=== PATIENT | female | born 1970 | race Caucasian/White ===

== ENCOUNTER 2022-08-26 02:25 | Inpatient (IN) | payer BC, MEDICAID ==
[~2022-08-26] VITALS: Ht 170.2 cm; Wt 103.6 kg
[~2022-08-26 02:25] MED LIST: CLIN-141 PO; FURO-152 PO; POTA10CA45 PO; TAMS-1 PO
[2022-08-26 03:06] LABS: BASOPHILS % (AUTO) 0.2 % (0.0-5.0); EOSINOPHILS % (AUTO) 1.1 % (0.0-8.0); HEMATOCRIT 24.2 % (36-48); LYMPHOCYTES % (AUTO) 9.2 % (21.0-51.0); MEAN CORPUSCULAR HEMOGLOBIN 27.5 pg (27.0-33.0); MEAN CORPUSCULAR HGB CONC 32.6 g/dL (32.0-36.0); MEAN CORPUSCULAR VOLUME 84.3 fL (79-99); MONOCYTES % (AUTO) 6.8 % (3.0-13.0); NEUTROPHILS % (AUTO) 81.6 % (40.0-77.0); NUCLEATED RED BLOOD CELLS 0.4 % (0.0-0.19); PLATELET COUNT (AUTO) 147 K/uL (130-400); RED BLOOD CELL COUNT(AUTO) 2.87 MIL/uL (4.00-5.50); RED CELL DISTRIBUTION WIDTH 16.5 % (11.0-15.5); WHITE BLOOD COUNT (AUTO) 10.3 K/uL (4.8-10.8)
[2022-08-26 03:21] LABS: ALBUMIN 2.7 g/dL (3.5-5.0); CREATININE 1.8 mg/dL (0.5-1.5); POTASSIUM 5.1 mmol/L (3.5-5.1); TOTAL PROTEIN, SERUM 8.4 g/dL (6.0-8.3)
[2022-08-26] MEDS ORDERED: 0.9%NACL 1000ML 1,000 ML IV ONE ×2 (03:31→04:00)
[2022-08-26] MEDS ORDERED: ONDANSETRON 4MG INJ ONE (03:31)
[2022-08-26 03:43] LABS: ABG OXYGEN SATURATION 31.5 % (95.0-99.0); BASE EXCESS,VENOUS BLOOD GAS -3.3 (-2.0-3.0); HCO3,VENOUS BLOOD GAS 20.2 (21.0-28.0); PCO2,VENOUS BLOOD GAS 30 (32-45); PH,VENOUS BLOOD GAS 7.441 (7.350-7.450)
[2022-08-26] MEDS ORDERED: ONDANSETRON 4MG INJ IVP ONE (04:00)
[2022-08-26] MEDS ORDERED: INSULIN HUMULIN R 100 UNIT/ML 3ML IV ONE ×3 (04:30→17:30)
[2022-08-26] MEDS ORDERED: ASPIRIN 81MG CHEW TAB ONE (04:42)
[2022-08-26] MEDS ORDERED: ASPIRIN 81MG CHEW TAB PO ONE (05:00)
[2022-08-26] MEDS ORDERED: LACTULOSE 20 GM/30 ML UDCUP PO PRN (05:00)
[2022-08-26] MEDS ORDERED: ACETAMINOPHEN 325 MG TAB PO PRN (05:00)
[2022-08-26 05:20] LABS: INR 1.02 (0.85-1.15); PROTHROMBIN TIME 11.1 SEC (9.6-11.6)
[2022-08-26 05:22] LABS: PARTIAL THROMBOPLASTIN TIME 24.8 SEC (26.3-35.5)
[2022-08-26 05:27] LABS: CHOLESTEROL 95 mg/dL (<200); HDL CHOLESTEROL 32 mg/dL (35-85); HEMOGLOBIN A1C 10.5 % (4.0-6.0); LDL DIRECT 52 mg/dL (0-99); TRIGLYCERIDES 133 mg/dL (30-200)
[2022-08-26] MEDS: HEPARIN 25,000 UNITS/250ML D5W 250 ML IV SCH ×4 (05:30→18:00)
[2022-08-26] MEDS ORDERED: INSULIN HUMULIN R 100 UNIT/ML 3ML SQ SCH (06:00)
[2022-08-26] MEDS ORDERED: HEPARIN 5,000 UNIT VIAL SQ PRN (06:00)
[2022-08-26 06:05] VITALS: BP 127/75
[2022-08-26 06:58] LABS: BASOPHILS % (AUTO) 0.2 % (0.0-5.0); EOSINOPHILS % (AUTO) 1.2 % (0.0-8.0); HEMATOCRIT 22.5 % (36-48); LYMPHOCYTES % (AUTO) 10.5 % (21.0-51.0); MEAN CORPUSCULAR HGB CONC 32.4 g/dL (32.0-36.0); MEAN CORPUSCULAR VOLUME 83.3 fL (79-99); MONOCYTES % (AUTO) 6.7 % (3.0-13.0); NUCLEATED RED BLOOD CELLS 0.4 % (0.0-0.19); PLATELET COUNT (AUTO) 130 K/uL (130-400); RED CELL DISTRIBUTION WIDTH 16.9 % (11.0-15.5); WHITE BLOOD COUNT (AUTO) 10.9 K/uL (4.8-10.8)
[2022-08-26] MEDS ORDERED: CARBAMAZEPINE ER 200 MG TAB PO SCH (08:00)
[2022-08-26] MEDS: FAMOTIDINE 20MG VIAL IV SCH (08:22)
[2022-08-26] MEDS: ATORVASTATIN 40 MG TABLET PO SCH (08:24)
[2022-08-26] MEDS: ASPIRIN 81 MG EC TAB PO SCH (08:26)
[2022-08-26 08:49] VITALS: BP 106/57
[2022-08-26] MEDS ORDERED: ASPIRIN 81 MG EC TAB PO SCH (09:00)
[2022-08-26 09:53] LABS: HCO3,VENOUS BLOOD GAS 21.2 (21.0-28.0); PCO2,VENOUS BLOOD GAS 39 (32-45); PH,VENOUS BLOOD GAS 7.351 (7.350-7.450)
[2022-08-26] MEDS ORDERED: TICAGRELOR 90 MG TABLET PO SCH (10:00)
[2022-08-26 10:05] LABS: HEMATOCRIT 23.1 % (36-48); MEAN CORPUSCULAR HEMOGLOBIN 27.1 pg (27.0-33.0); MEAN CORPUSCULAR VOLUME 84.6 fL (79-99); NUCLEATED RED BLOOD CELLS 0.4 % (0.0-0.19); RED BLOOD CELL COUNT(AUTO) 2.73 MIL/uL (4.00-5.50); RED CELL DISTRIBUTION WIDTH 16.9 % (11.0-15.5); WHITE BLOOD COUNT (AUTO) 10.3 K/uL (4.8-10.8)
[2022-08-26 10:27] LABS: POTASSIUM 4.1 mmol/L (3.5-5.1)
[2022-08-26 10:28] LABS: ALBUMIN 2.7 g/dL (3.5-5.0); BILIRUBIN,DIRECT 0.5 mg/dL (0.0-0.3); MAGNESIUM 1.8 mg/dL (1.80-2.40); TOTAL PROTEIN, SERUM 8.1 g/dL (6.0-8.3)
[2022-08-26] MEDS ORDERED: INSULIN REGULAR, HUMAN 3ML 100 UNIT in 0.9%NACL 100ML 99 ML IV PRN ×2 (11:30)
[2022-08-26] MEDS ORDERED: INSULIN GLARGINE 100 UNITS/ML 10 ML VIAL SQ ONE (11:30)
[2022-08-26] MEDS: 0.9%NACL 1000ML 1,000 ML IV SCH ×2 (11:57→13:55)
[2022-08-26 12:19] VITALS: BP 115/74
[2022-08-26] MEDS: INSULIN HUMULIN R 100 UNIT/ML 3ML SQ SCH ×2 (13:45→18:25)
[2022-08-26 14:01] LABS: CREATININE 1.9 mg/dL (0.5-1.5); POTASSIUM 3.9 mmol/L (3.5-5.1)
[2022-08-26 14:04] LABS: ALBUMIN 2.6 g/dL (3.5-5.0)
[2022-08-26 16:18] VITALS: BP 132/79
[2022-08-26 19:09] LABS: ABG OXYGEN SATURATION 22.9 % (95.0-99.0); BASE EXCESS,VENOUS BLOOD GAS -3.4 (-2.0-3.0); HCO3,VENOUS BLOOD GAS 22.6 (21.0-28.0); PCO2,VENOUS BLOOD GAS 44 (32-45); PH,VENOUS BLOOD GAS 7.325 (7.350-7.450)
[2022-08-26 20:10] VITALS: BP 114/57
[2022-08-26] MEDS ORDERED: INSULIN GLARGINE 100 UNITS/ML 10 ML VIAL SQ SCH (21:00)
[2022-08-26] MEDS: INSULIN GLARGINE 100 UNITS/ML 10 ML VIAL SQ SCH (21:15)
[2022-08-27] VITALS (7 sets, daily range): BP systolic 104–140; BP diastolic 51–75
[2022-08-27] MEDS: INSULIN HUMULIN R 100 UNIT/ML 3ML SQ SCH ×5 (00:53→23:29)
[2022-08-27] MEDS: 0.9%NACL 1000ML 1,000 ML IV SCH ×2 (03:20→20:00)
[2022-08-27 04:09] LABS: BASOPHILS % (AUTO) 0.2 % (0.0-5.0); EOSINOPHILS % (AUTO) 2.5 % (0.0-8.0); HEMATOCRIT 21.4 % (36-48); LYMPHOCYTES % (AUTO) 8.6 % (21.0-51.0); MEAN CORPUSCULAR HEMOGLOBIN 28.2 pg (27.0-33.0); MEAN CORPUSCULAR HGB CONC 33.2 g/dL (32.0-36.0); MEAN CORPUSCULAR VOLUME 84.9 fL (79-99); MONOCYTES % (AUTO) 7.3 % (3.0-13.0); NEUTROPHILS % (AUTO) 79.8 % (40.0-77.0); NUCLEATED RED BLOOD CELLS 0.6 % (0.0-0.19); PLATELET COUNT (AUTO) 141 K/uL (130-400); RED BLOOD CELL COUNT(AUTO) 2.52 MIL/uL (4.00-5.50); RED CELL DISTRIBUTION WIDTH 16.9 % (11.0-15.5); WHITE BLOOD COUNT (AUTO) 13.2 K/uL (4.8-10.8)
[2022-08-27] MEDS: HEPARIN 25,000 UNITS/250ML D5W 250 ML IV SCH ×2 (05:23)
[2022-08-27 05:36] LABS: ALBUMIN 2.3 g/dL (3.5-5.0); CREATININE 1.7 mg/dL (0.5-1.5); POTASSIUM 4.3 mmol/L (3.5-5.1); TOTAL PROTEIN, SERUM 7.5 g/dL (6.0-8.3)
[2022-08-27] MEDS: ONDANSETRON 4MG INJ IV PRN ×2 (05:59→09:56)
[2022-08-27] MEDS: INSULIN GLARGINE 100 UNITS/ML 10 ML VIAL SQ SCH ×2 (07:30→20:33)
[2022-08-27] MEDS: FAMOTIDINE 20MG VIAL IV SCH (08:01)
[2022-08-27] MEDS: ASPIRIN 81 MG EC TAB PO SCH (08:01)
[2022-08-27] MEDS: ATORVASTATIN 40 MG TABLET PO SCH (08:01)
[2022-08-27] MEDS ORDERED: TICAGRELOR 90 MG TABLET PO SCH (09:00)
[2022-08-27] MEDS ORDERED: NITROGLYCERIN 1GM OINT 1 INCH/1GM TD ONE (09:00)
[2022-08-27] MEDS: CARVEDILOL 3.125 MG TABLET PO SCH ×2 (09:59→20:29)
[2022-08-27 10:25] LABS: HEMATOCRIT 21.7 % (36-48); MEAN CORPUSCULAR HEMOGLOBIN 27.5 pg (27.0-33.0); MEAN CORPUSCULAR HGB CONC 31.8 g/dL (32.0-36.0); MEAN CORPUSCULAR VOLUME 86.5 fL (79-99); NUCLEATED RED BLOOD CELLS 0.5 % (0.0-0.19); RED BLOOD CELL COUNT(AUTO) 2.51 MIL/uL (4.00-5.50); RED CELL DISTRIBUTION WIDTH 17.2 % (11.0-15.5); WHITE BLOOD COUNT (AUTO) 12.7 K/uL (4.8-10.8)
[2022-08-27 10:57] LABS: INR 1.01 (0.85-1.15)
[2022-08-27 10:58] LABS: PARTIAL THROMBOPLASTIN TIME 41.6 SEC (26.3-35.5)
[2022-08-27 11:32] LABS: % IRON SATURATION 14.4 % (22-44)
[2022-08-27] MEDS ORDERED: IRON SUCROSE COMPLEX 100 MG/5 ML VIAL IVP SCH (14:00)
[2022-08-27] MEDS ORDERED: COMPOUND IV MISC 1 EACH IVSOLN MISC PRN (14:00)
[2022-08-27] MEDS ORDERED: IRON SUCROSE COMPLEX 300 MG in 0.9% NACL 250ML 250 ML IVP SCH (14:00)
[2022-08-27] MEDS: PANTOPRAZOLE 40 MG/VIAL IVP SCH (20:28)
[2022-08-27 23:18] LABS: HEMATOCRIT 23.5 % (36-48)
[2022-08-28] VITALS (8 sets, daily range): BP systolic 88–167; BP diastolic 46–77
[2022-08-28] MEDS: IRON SUCROSE COMPLEX 300 MG in 0.9% NACL 250ML 250 ML IVP SCH ×2 (00:23→21:28)
[2022-08-28 03:55] LABS: HEMATOCRIT 24.5 % (36-48); MEAN CORPUSCULAR HEMOGLOBIN 27.6 pg (27.0-33.0); MEAN CORPUSCULAR HGB CONC 31.8 g/dL (32.0-36.0); MEAN CORPUSCULAR VOLUME 86.6 fL (79-99); NUCLEATED RED BLOOD CELLS 0.6 % (0.0-0.19); RED BLOOD CELL COUNT(AUTO) 2.83 MIL/uL (4.00-5.50); RED CELL DISTRIBUTION WIDTH 16.5 % (11.0-15.5)
[2022-08-28 04:25] LABS: ALBUMIN 2.5 g/dL (3.5-5.0); BILIRUBIN,DIRECT 0.7 mg/dL (0.0-0.3); CREATININE 1.7 mg/dL (0.5-1.5); PHOSPHORUS 3.3 mg/dL (2.5-4.9); POTASSIUM 4.2 mmol/L (3.5-5.1); TOTAL PROTEIN, SERUM 7.9 g/dL (6.0-8.3); URIC ACID 8.9 mg/dL (2.6-7.2)
[2022-08-28] MEDS: INSULIN HUMULIN R 100 UNIT/ML 3ML SQ SCH ×3 (06:07→17:42)
[2022-08-28] MEDS: INSULIN GLARGINE 100 UNITS/ML 10 ML VIAL SQ SCH ×2 (06:09→21:32)
[2022-08-28 08:28] LABS: HEMATOCRIT 24.6 % (36-48)
[2022-08-28] MEDS: ONDANSETRON 4MG INJ IV PRN (08:41)
[2022-08-28] MEDS: Vitamin B Complex/Vit C/Folic Acid PO SCH (08:41)
[2022-08-28] MEDS: PANTOPRAZOLE 40 MG/VIAL IVP SCH ×2 (08:41→21:26)
[2022-08-28] MEDS: CARVEDILOL 3.125 MG TABLET PO SCH ×2 (08:42→21:27)
[2022-08-28] MEDS: ATORVASTATIN 40 MG TABLET PO SCH (08:42)
[2022-08-28] MEDS: ASPIRIN 81 MG EC TAB PO SCH (08:42)
[2022-08-28] MEDS: MORPHINE 2 MG SYG IV PRN ×2 (08:44→23:00)
[2022-08-28] MEDS: FUROSEMIDE 20MG VIAL IV SCH ×2 (11:50→23:07)
[2022-08-28] MEDS: 0.9%NACL 1000ML 1,000 ML IV SCH (16:00)
[2022-08-28] MEDS ORDERED: LISINOPRIL 2.5 MG TABLET PO SCH (21:00)
[2022-08-28] MEDS: ACETAMINOPHEN 325 MG TAB PO PRN (21:31)
[2022-08-29] VITALS (54 sets, daily range): BP systolic 67–128; BP diastolic 22–68
[2022-08-29 02:41] LABS: HEMATOCRIT 21.6 % (36-48)
[2022-08-29] MEDS ORDERED: 0.9% NACL 500ML IV.SOLN 500 ML IV SCH (03:30)
[2022-08-29] MEDS ORDERED: NOREPINEPHRINE BITARTRATE 8 MG in DEXTROSE 5%-WATER 250 ML IV PRN (03:30)
[2022-08-29] MEDS ORDERED: NOREPINEPHRIN 4MG/NS 250ML 250 ML IV ONE (03:40)
[2022-08-29] MEDS ORDERED: NOREPINEPHRIN 4MG/NS 250ML 250 ML IV SCH (04:00)
[2022-08-29 06:26] LABS: BASOPHILS % (AUTO) 0.4 % (0.0-5.0); EOSINOPHILS % (AUTO) 4.3 % (0.0-8.0); HEMATOCRIT 24.7 % (36-48); LYMPHOCYTES % (AUTO) 9.8 % (21.0-51.0); MEAN CORPUSCULAR HGB CONC 31.2 g/dL (32.0-36.0); MEAN CORPUSCULAR VOLUME 89.8 fL (79-99); MONOCYTES % (AUTO) 5.5 % (3.0-13.0); NEUTROPHILS % (AUTO) 75.5 % (40.0-77.0); NUCLEATED RED BLOOD CELLS 1.6 % (0.0-0.19); PLATELET COUNT (AUTO) 161 K/uL (130-400); RED BLOOD CELL COUNT(AUTO) 2.75 MIL/uL (4.00-5.50); RED CELL DISTRIBUTION WIDTH 17.3 % (11.0-15.5); WHITE BLOOD COUNT (AUTO) 15.4 K/uL (4.8-10.8)
[2022-08-29] MEDS ORDERED: REGADENOSON 0.4 MG/5 ML PF SYG IVP SCH (06:30)
[2022-08-29 06:36] LABS: ALBUMIN 2.4 g/dL (3.5-5.0); CREATININE 1.7 mg/dL (0.5-1.5); POTASSIUM 4.2 mmol/L (3.5-5.1); TOTAL PROTEIN, SERUM 7.6 g/dL (6.0-8.3)
[2022-08-29] MEDS: INSULIN GLARGINE 100 UNITS/ML 10 ML VIAL SQ SCH ×2 (06:42→21:02)
[2022-08-29] MEDS: INSULIN HUMULIN R 100 UNIT/ML 3ML SQ SCH ×4 (06:47→17:38)
[2022-08-29] MEDS: CARVEDILOL 3.125 MG TABLET PO SCH (08:17)
[2022-08-29 08:26] LABS: RETICULOCYTE % (AUTO) 4.5 % (0.42-2.23)
[2022-08-29] MEDS: Vitamin B Complex/Vit C/Folic Acid PO SCH ×2 (09:00→10:42)
[2022-08-29] MEDS: ASPIRIN 81 MG EC TAB PO SCH ×2 (09:00→10:42)
[2022-08-29] MEDS: ATORVASTATIN 40 MG TABLET PO SCH ×2 (09:00→10:42)
[2022-08-29 09:05] LABS: CRP QUANTITATIVE 82.1 mg/L (0.00-9.0); THYROID STIMULATING HORMONE 1.25 uIU/mL (0.36-3.74)
[2022-08-29] MEDS: PANTOPRAZOLE 40 MG/VIAL IVP SCH ×2 (10:42→20:56)
[2022-08-29 10:46] LABS: HEMATOCRIT 22.4 % (36-48)
[2022-08-29] MEDS: FUROSEMIDE 20MG VIAL IV SCH (11:00)
[2022-08-29] MEDS: DOPAMINE HCL 400 MG/D5%-WATER 250 ML IV PRN (12:56)
[2022-08-29] MEDS ORDERED: DOPAMINE HCL 400 MG/D5%-WATER 250 ML IV PRN (13:00)
[2022-08-29] MEDS: ONDANSETRON 4MG INJ IV PRN (13:22)
[2022-08-29] MEDS: CEFEPIME HCL 1 GM VIAL IVPB SCH (15:28)
[2022-08-29] MEDS ORDERED: PHARMACY COMMUNICATION MISC SCH (15:30)
[2022-08-29] MEDS: BUMETANIDE 2.5MG/10ML VIAL 40 ML IV SCH (15:30)
[2022-08-29 15:47] LABS: HEMATOCRIT 30.1 % (36-48)
[2022-08-29 15:54] LABS: INR 1.09 (0.85-1.15); PROTHROMBIN TIME 11.8 SEC (9.6-11.6)
[2022-08-29 15:56] LABS: PARTIAL THROMBOPLASTIN TIME 27.8 SEC (26.3-35.5)
[2022-08-29 17:11] LABS: BILIRUBIN,URINE NEGATIVE (NEGATIVE); COLOR,URINE YELLOW (YELLOW); GLUCOSE, URINE (UA) NEGATIVE (NEGATIVE); KETONES,URINE NEGATIVE (NEGATIVE); LEUKOCYTE ESTERASE ,URINE 500 Leu/uL (NEGATIVE); NITRATE,URINE NEGATIVE (NEGATIVE); OCCULT BLOOD,URINE SMALL (NEGATIVE); PH,URINE 5.5 (5.0-8.0); PROTEIN,URINE 100 mg/dL (NEGATIVE); UROBILINOGEN,URINE 0.2 mg/dL (0.2-1.0)
[2022-08-29 17:23] LABS: APPEARANCE,URINE CLOUDY (CLEAR)
[2022-08-29 17:38] LABS: BACTERIA,URINE MANY /HPF (None Seen); MUCUS,URINE RARE LPF (None Seen); SQUAMOUS EPITHELIAL CELL,UR MANY /HPF (0-2); WBC,URINE TNTC /HPF (0-1)
[2022-08-29 20:12] LABS: HEMATOCRIT 27.9 % (36-48)
[2022-08-29] MEDS: SUCRALFATE 1 GM TABLET PO SCH (20:55)
[2022-08-29] MEDS: LEVOFLOXACIN 500 MG/D5W 100 ML 100 ML IV SCH (20:55)
[2022-08-29] MEDS ORDERED: IRON SUCROSE COMPLEX 300 MG in 0.9% NACL 250ML 250 ML IV SCH (21:00)
[2022-08-30] VITALS (43 sets, daily range): BP systolic 80–148; BP diastolic 36–94
[2022-08-30] MEDS: CEFEPIME HCL 1 GM VIAL IVPB SCH ×4 (00:03→22:59)
[2022-08-30] MEDS: INSULIN HUMULIN R 100 UNIT/ML 3ML SQ SCH ×5 (00:25→23:26)
[2022-08-30] MEDS ORDERED: BUMETANIDE 1MG/4ML VIAL ONE (01:59)
[2022-08-30 04:28] LABS: BASOPHILS % (AUTO) 0.2 % (0.0-5.0); EOSINOPHILS % (AUTO) 3.8 % (0.0-8.0); HEMATOCRIT 31.3 % (36-48); LYMPHOCYTES % (AUTO) 9.5 % (21.0-51.0); MEAN CORPUSCULAR HEMOGLOBIN 28.9 pg (27.0-33.0); MEAN CORPUSCULAR HGB CONC 32.6 g/dL (32.0-36.0); MEAN CORPUSCULAR VOLUME 88.7 fL (79-99); MONOCYTES % (AUTO) 7.1 % (3.0-13.0); NEUTROPHILS % (AUTO) 77.7 % (40.0-77.0); NUCLEATED RED BLOOD CELLS 1.3 % (0.0-0.19); PLATELET COUNT (AUTO) 125 K/uL (130-400); RED BLOOD CELL COUNT(AUTO) 3.53 MIL/uL (4.00-5.50); RED CELL DISTRIBUTION WIDTH 16.6 % (11.0-15.5); WHITE BLOOD COUNT (AUTO) 10.4 K/uL (4.8-10.8)
[2022-08-30 04:37] LABS: CREATININE 2.1 mg/dL (0.5-1.5); PHOSPHORUS 4.8 mg/dL (2.5-4.9); POTASSIUM 3.7 mmol/L (3.5-5.1)
[2022-08-30 04:54] LABS: B-TYPE NATRIURETIC PEPTIDE 1340 pg/mL (0-100)
[2022-08-30] MEDS: INSULIN GLARGINE 100 UNITS/ML 10 ML VIAL SQ SCH ×3 (07:14→20:18)
[2022-08-30] MEDS: ATORVASTATIN 40 MG TABLET PO SCH (08:47)
[2022-08-30] MEDS: SUCRALFATE 1 GM TABLET PO SCH ×3 (08:47→20:09)
[2022-08-30] MEDS: Vitamin B Complex/Vit C/Folic Acid PO SCH (08:47)
[2022-08-30] MEDS: ASPIRIN 81 MG EC TAB PO SCH (08:47)
[2022-08-30] MEDS: PANTOPRAZOLE 40 MG/VIAL IVP SCH ×2 (08:48→20:09)
[2022-08-30] MEDS: DOPAMINE HCL 400 MG/D5%-WATER 250 ML IV PRN (11:17)
[2022-08-30] MEDS ORDERED: LOPERAMIDE HCL 2 MG CAP PO PRN (14:00)
[2022-08-30] MEDS: LEVOFLOXACIN 500 MG/D5W 100 ML 100 ML IV SCH (20:09)
[2022-08-30] MEDS: 0.9%NACL 10ML VIAL IV SCH (20:10)
[2022-08-31] VITALS (31 sets, daily range): BP systolic 84–142; BP diastolic 49–86
[2022-08-31] MEDS: BUMETANIDE 2.5MG/10ML VIAL 40 ML IV SCH (02:20)
[2022-08-31 04:10] LABS: BASOPHILS % (AUTO) 0.3 % (0.0-5.0); EOSINOPHILS % (AUTO) 3.7 % (0.0-8.0); HEMATOCRIT 30.3 % (36-48); LYMPHOCYTES % (AUTO) 11.1 % (21.0-51.0); MEAN CORPUSCULAR HEMOGLOBIN 28.5 pg (27.0-33.0); MEAN CORPUSCULAR HGB CONC 32.7 g/dL (32.0-36.0); MEAN CORPUSCULAR VOLUME 87.3 fL (79-99); MONOCYTES % (AUTO) 9.9 % (3.0-13.0); NEUTROPHILS % (AUTO) 73.6 % (40.0-77.0); NUCLEATED RED BLOOD CELLS 0.5 % (0.0-0.19); PLATELET COUNT (AUTO) 111 K/uL (130-400); RED BLOOD CELL COUNT(AUTO) 3.47 MIL/uL (4.00-5.50); RED CELL DISTRIBUTION WIDTH 17.2 % (11.0-15.5); WHITE BLOOD COUNT (AUTO) 7.4 K/uL (4.8-10.8)
[2022-08-31 04:23] LABS: ALBUMIN 2.5 g/dL (3.5-5.0); CREATININE 1.9 mg/dL (0.5-1.5); MAGNESIUM 1.6 mg/dL (1.80-2.40); POTASSIUM 3.3 mmol/L (3.5-5.1); TOTAL PROTEIN, SERUM 7.9 g/dL (6.0-8.3)
[2022-08-31 04:31] LABS: B-TYPE NATRIURETIC PEPTIDE 767 pg/mL (0-100)
[2022-08-31] MEDS ORDERED: POTASSIUM CHLORIDE 10% ELIXIR 20 MEQ/15 ML UDCUP PO PRN (05:30)
[2022-08-31] MEDS ORDERED: MAGNESIUM 2GM PREMIX 50ML 50 ML IV PRN (05:30)
[2022-08-31] MEDS ORDERED: POTASSIUM CHLORIDE 20MEQ/100ML 100 ML IV PRN (05:30)
[2022-08-31] MEDS: INSULIN HUMULIN R 100 UNIT/ML 3ML SQ SCH ×3 (06:00→17:06)
[2022-08-31] MEDS: CEFEPIME HCL 1 GM VIAL IVPB SCH ×3 (07:50→23:41)
[2022-08-31] MEDS: INSULIN GLARGINE 100 UNITS/ML 10 ML VIAL SQ SCH ×2 (07:52→20:40)
[2022-08-31] MEDS: ATORVASTATIN 40 MG TABLET PO SCH (08:49)
[2022-08-31] MEDS: 0.9%NACL 10ML VIAL IV SCH (08:49)
[2022-08-31] MEDS: PANTOPRAZOLE 40 MG/VIAL IVP SCH ×2 (08:49→20:27)
[2022-08-31] MEDS: SUCRALFATE 1 GM TABLET PO SCH ×3 (08:49→20:27)
[2022-08-31] MEDS: ASPIRIN 81 MG EC TAB PO SCH (08:49)
[2022-08-31] MEDS: Vitamin B Complex/Vit C/Folic Acid PO SCH (08:49)
[2022-08-31] MEDS: DOPAMINE HCL 400 MG/D5%-WATER 250 ML IV PRN (09:50)
[2022-08-31] MEDS ORDERED: IRON SUCROSE COMPLEX 200 MG in 0.9% NACL 250ML 250 ML IV SCH (16:00)
[2022-08-31] MEDS: LEVOFLOXACIN 500 MG/D5W 100 ML 100 ML IV SCH (20:26)
[2022-09-01] MEDS: INSULIN HUMULIN R 100 UNIT/ML 3ML SQ SCH ×5 (00:03→20:39)
[2022-09-01 04:15] VITALS: BP 105/54
[2022-09-01 05:05] LABS: BASOPHILS % (AUTO) 0.2 % (0.0-5.0); EOSINOPHILS % (AUTO) 3.3 % (0.0-8.0); HEMATOCRIT 28.2 % (36-48); LYMPHOCYTES % (AUTO) 19.3 % (21.0-51.0); MEAN CORPUSCULAR HEMOGLOBIN 28.3 pg (27.0-33.0); MEAN CORPUSCULAR HGB CONC 31.6 g/dL (32.0-36.0); MEAN CORPUSCULAR VOLUME 89.8 fL (79-99); MONOCYTES % (AUTO) 12.3 % (3.0-13.0); NEUTROPHILS % (AUTO) 63.5 % (40.0-77.0); NUCLEATED RED BLOOD CELLS 0.4 % (0.0-0.19); PLATELET COUNT (AUTO) 76 K/uL (130-400); RED BLOOD CELL COUNT(AUTO) 3.14 MIL/uL (4.00-5.50); WHITE BLOOD COUNT (AUTO) 5.1 K/uL (4.8-10.8)
[2022-09-01 05:06] LABS: CREATININE 1.9 mg/dL (0.5-1.5); MAGNESIUM 1.7 mg/dL (1.80-2.40); POTASSIUM 3.6 mmol/L (3.5-5.1)
[2022-09-01] MEDS: CEFEPIME HCL 1 GM VIAL IVPB SCH ×3 (06:16→23:06)
[2022-09-01 07:14] VITALS: BP 103/63
[2022-09-01] MEDS: 0.9%NACL 10ML VIAL IV SCH ×3 (07:35→21:44)
[2022-09-01] MEDS ORDERED: MAGNESIUM 2GM PREMIX 50ML 50 ML IV PRN (08:00)
[2022-09-01] MEDS: SUCRALFATE 1 GM TABLET PO SCH ×3 (09:00→20:33)
[2022-09-01] MEDS: ATORVASTATIN 40 MG TABLET PO SCH (10:11)
[2022-09-01] MEDS: PANTOPRAZOLE 40 MG/VIAL IVP SCH ×2 (10:11→20:34)
[2022-09-01] MEDS: ASPIRIN 81 MG EC TAB PO SCH (10:11)
[2022-09-01] MEDS ORDERED: IRON DEXTRAN COMPLEX IM SCH (10:18)
[2022-09-01] MEDS ORDERED: NACL 0.9% IM SCH (10:18)
[2022-09-01] MEDS: INSULIN GLARGINE 100 UNITS/ML 10 ML VIAL SQ SCH ×2 (10:19→20:41)
[2022-09-01] MEDS: IRON SUCROSE COMPLEX 100 MG/5 ML VIAL IVP SCH (10:54)
[2022-09-01 11:12] VITALS: BP 116/65
[2022-09-01] MEDS: IRON DEXTRAN COMPLEX IV SCH (13:14)
[2022-09-01] MEDS: Vitamin B Complex/Vit C/Folic Acid PO SCH (15:31)
[2022-09-01 17:06] VITALS: BP 115/57
[2022-09-01 17:26] LABS: ALBUMIN 2.4 g/dL (3.5-5.0); CREATININE 1.9 mg/dL (0.5-1.5); MAGNESIUM 1.5 mg/dL (1.80-2.40); POTASSIUM 3.5 mmol/L (3.5-5.1); TOTAL PROTEIN, SERUM 7.4 g/dL (6.0-8.3)
[2022-09-01 19:43] VITALS: BP 129/71
[2022-09-01] MEDS: LEVOFLOXACIN 500 MG/D5W 100 ML 100 ML IV SCH (20:32)
[2022-09-01] MEDS: BUMETANIDE 2.5MG/10ML VIAL 40 ML IV SCH (23:01)
[2022-09-02 00:21] VITALS: BP 120/62
[2022-09-02 03:49] LABS: BASOPHILS % (AUTO) 0.2 % (0.0-5.0); EOSINOPHILS % (AUTO) 3.1 % (0.0-8.0); HEMATOCRIT 29.5 % (36-48); LYMPHOCYTES % (AUTO) 16.5 % (21.0-51.0); MEAN CORPUSCULAR HEMOGLOBIN 28.8 pg (27.0-33.0); MEAN CORPUSCULAR HGB CONC 32.9 g/dL (32.0-36.0); MEAN CORPUSCULAR VOLUME 87.5 fL (79-99); MONOCYTES % (AUTO) 11.5 % (3.0-13.0); PLATELET COUNT (AUTO) 71 K/uL (130-400); RED BLOOD CELL COUNT(AUTO) 3.37 MIL/uL (4.00-5.50); RED CELL DISTRIBUTION WIDTH 16.7 % (11.0-15.5); WHITE BLOOD COUNT (AUTO) 5.5 K/uL (4.8-10.8)
[2022-09-02 03:58] VITALS: BP 136/72
[2022-09-02 04:02] LABS: CREATININE 2.1 mg/dL (0.5-1.5); POTASSIUM 3.4 mmol/L (3.5-5.1)
[2022-09-02] MEDS: CEFEPIME HCL 1 GM VIAL IVPB SCH ×2 (06:18→13:09)
[2022-09-02] MEDS: INSULIN HUMULIN R 100 UNIT/ML 3ML SQ SCH ×4 (06:20→21:03)
[2022-09-02] MEDS: INSULIN GLARGINE 100 UNITS/ML 10 ML VIAL SQ SCH ×2 (06:20→21:01)
[2022-09-02] MEDS ORDERED: MAGNESIUM 2GM PREMIX 50ML 50 ML IV SCH (07:30)
[2022-09-02 08:19] VITALS: BP 120/64
[2022-09-02] MEDS: PANTOPRAZOLE 40 MG/VIAL IVP SCH ×2 (08:37→20:54)
[2022-09-02] MEDS: IRON SUCROSE COMPLEX 100 MG/5 ML VIAL IVP SCH (08:38)
[2022-09-02] MEDS: 0.9%NACL 10ML VIAL IV SCH ×2 (08:38→21:03)
[2022-09-02] MEDS: ATORVASTATIN 40 MG TABLET PO SCH (08:39)
[2022-09-02] MEDS: Vitamin B Complex/Vit C/Folic Acid PO SCH (08:39)
[2022-09-02] MEDS: SUCRALFATE 1 GM TABLET PO SCH ×4 (08:39→20:54)
[2022-09-02] MEDS: ASPIRIN 81 MG EC TAB PO SCH (08:39)
[2022-09-02] MEDS ORDERED: IRON DEXTRAN COMPLEX IM SCH (09:00)
[2022-09-02] MEDS ORDERED: NACL 0.9% IM SCH (09:00)
[2022-09-02 12:27] VITALS: BP 107/53
[2022-09-02] MEDS: IRON DEXTRAN COMPLEX IV SCH (16:00)
[2022-09-02 16:42] VITALS: BP 144/76
[2022-09-02 19:12] VITALS: BP 119/64
[2022-09-02] MEDS: LEVOFLOXACIN 500 MG/D5W 100 ML 100 ML IV SCH (20:54)
[2022-09-03] MEDS: CEFEPIME HCL 1 GM VIAL IVPB SCH ×2 (00:05→07:53)
[2022-09-03 00:18] VITALS: BP_SYST 137; BP_DIAS 61; BP_DIAS 66
[2022-09-03 03:18] VITALS: BP 130/58
[2022-09-03 04:11] LABS: BASOPHILS % (AUTO) 0.2 % (0.0-5.0); EOSINOPHILS % (AUTO) 3.2 % (0.0-8.0); HEMATOCRIT 29.5 % (36-48); MEAN CORPUSCULAR HEMOGLOBIN 28.4 pg (27.0-33.0); MEAN CORPUSCULAR HGB CONC 31.5 g/dL (32.0-36.0); MEAN CORPUSCULAR VOLUME 89.9 fL (79-99); MONOCYTES % (AUTO) 12.8 % (3.0-13.0); NEUTROPHILS % (AUTO) 64.4 % (40.0-77.0); PLATELET COUNT (AUTO) 70 K/uL (130-400); RED BLOOD CELL COUNT(AUTO) 3.28 MIL/uL (4.00-5.50); RED CELL DISTRIBUTION WIDTH 16.3 % (11.0-15.5); WHITE BLOOD COUNT (AUTO) 5.4 K/uL (4.8-10.8)
[2022-09-03 04:20] LABS: CREATININE 1.8 mg/dL (0.5-1.5); MAGNESIUM 1.4 mg/dL (1.80-2.40); POTASSIUM 3.3 mmol/L (3.5-5.1)
[2022-09-03] MEDS: KCL 20 MEQ ERTAB PO PRN ×3 (05:12→12:23)
[2022-09-03] MEDS: INSULIN HUMULIN R 100 UNIT/ML 3ML SQ SCH ×2 (06:33→11:46)
[2022-09-03] MEDS: ATORVASTATIN 40 MG TABLET PO SCH (07:54)
[2022-09-03] MEDS: Vitamin B Complex/Vit C/Folic Acid PO SCH (07:54)
[2022-09-03] MEDS: SUCRALFATE 1 GM TABLET PO SCH ×2 (07:54→13:33)
[2022-09-03] MEDS: ASPIRIN 81 MG EC TAB PO SCH (07:54)
[2022-09-03] MEDS: PANTOPRAZOLE 40 MG/VIAL IVP SCH (07:55)
[2022-09-03] MEDS: IRON SUCROSE COMPLEX 100 MG/5 ML VIAL IVP SCH (07:55)
[2022-09-03] MEDS: 0.9%NACL 10ML VIAL IV SCH (07:55)
[2022-09-03 07:57] VITALS: BP 115/67
[2022-09-03] MEDS: INSULIN GLARGINE 100 UNITS/ML 10 ML VIAL SQ SCH (08:16)
[2022-09-03] MEDS: ACETAMINOPHEN 325 MG TAB PO PRN (10:13)
[2022-09-03] MEDS ORDERED: PANT40TA55 PO (11:11)
[2022-09-03] MEDS ORDERED: ATOR40TA69 PO (11:11)
[2022-09-03] MEDS ORDERED: AEC81 PO (11:11)
[2022-09-03] MEDS ORDERED: SITA100T12 PO (11:16)
[2022-09-03] MEDS ORDERED: EMPA1TAB7 PO (11:16)
[2022-09-03 12:29] VITALS: BP 118/70
== END 2022-09-03 14:35 | disposition home or self-care (01) | DRG 280 ==
LOC: EDH 02:25 → EDHIP 04:57 → 2AH 06:00 → 2BH 08-29 04:13 → 2DH 08-31 13:16
PROVIDERS: ADMIT Hospitalist; ATTEND Hospitalist
PROC: 30233N1 Transfusion of Nonautologous Red Blood Cells into Peripheral Vein, Percutaneous Approach (ICD-10-PCS; 2022-08-27)
PROC: 02HV33Z Insertion of Infusion Device into Superior Vena Cava, Percutaneous Approach (ICD-10-PCS; principal; 2022-08-30)
DX: I21.4 Non-ST elevation (NSTEMI) myocardial infarction (principal); I50.43 Acute on chronic combined systolic (congestive) and diastolic (congestive) heart failure; J96.01 Acute respiratory failure with hypoxia; E87.1 Hypo-osmolality and hyponatremia; I13.0 Hypertensive heart and chronic kidney disease with heart failure and stage 1 through stage 4 chronic kidney disease, or unspecified chronic kidney disease; N17.9 Acute kidney failure, unspecified; N13.6 Pyonephrosis; D61.818 Other pancytopenia; D62 Acute posthemorrhagic anemia; Z20.822 Contact with and (suspected) exposure to COVID-19; E11.65 Type 2 diabetes mellitus with hyperglycemia; E11.22 Type 2 diabetes mellitus with diabetic chronic kidney disease; E66.01 Morbid (severe) obesity due to excess calories; G47.33 Obstructive sleep apnea (adult) (pediatric); D50.9 Iron deficiency anemia, unspecified; E86.0 Dehydration; E87.6 Hypokalemia; I25.10 Atherosclerotic heart disease of native coronary artery without angina pectoris; I27.20 Pulmonary hypertension, unspecified; N18.30 Chronic kidney disease, stage 3 unspecified; Z53.20 Procedure and treatment not carried out because of patient's decision for unspecified reasons; Z68.34 Body mass index [BMI] 34.0-34.9, adult; Z91.199 Patient's noncompliance with other medical treatment and regimen due to unspecified reason; Z74.01 Bed confinement status; I25.2 Old myocardial infarction; Z79.899 Other long term (current) drug therapy; Z83.3 Family history of diabetes mellitus; Z89.512 Acquired absence of left leg below knee; Z90.49 Acquired absence of other specified parts of digestive tract; Z90.710 Acquired absence of both cervix and uterus; Z99.3 Dependence on wheelchair
CPT/HCPCS: 36415; 36600; 71045; 74176; 76770; 78452; 80048; 80053; 80061; 80076; 81001; 82010; 82248; 82306; 82435; 82533; 82607; 82728; 82746; 82803; 82947; 82948; 83010; 83036; 83540; 83550; 83605; 83615; 83690; 83735; 83880; 83883; 84100; 84132; 84145; 84295; 84439; 84443; 84481; 84484; 84550; 84703; 85007; 85014; 85018; 85025; 85027; 85045; 85610; 85651; 85730; 86140; 86334; 86850; 86880; 86900; 86901; 86923; 87040; 87077; 87088; 87186; 87635; 87804; 93005; 93017; 93306; 93308; 93356; 96374; A9500; C1751; C1894; C9113; C9803; G0378; J0692; J1265; J1644; J1750; J1756; J1815; J1940; J1956; J2405; J2785; J3475; J3480; J3490; J7030; J7050; P9016

== ENCOUNTER 2024-09-06 21:43 | Emergency (ER) | payer MEDICARE ==
[~2024-09-06] VITALS: Ht 167.6 cm; Wt 113.4 kg
[2024-09-06] MEDS ORDERED: CYAN-37 PO (22:33)
[2024-09-06] MEDS ORDERED: TRAM50TA4 PO (22:33)
[2024-09-06] MEDS ORDERED: NYST15PO13 TP (22:33)
[2024-09-06] MEDS ORDERED: ONDA-104 PO (22:33)
[2024-09-06] MEDS ORDERED: LACT1CAP70 PO (22:33)
[2024-09-06] MEDS ORDERED: GUAI237S60 PO (22:33)
[2024-09-06] MEDS ORDERED: FOLI0.4T6 PO (22:33)
[2024-09-06] MEDS ORDERED: METO25TA6 PO (22:33)
[2024-09-06] MEDS ORDERED: PROM25AM IM (22:33)
[2024-09-06] MEDS ORDERED: FOLI0.8T53 PO (22:33)
[2024-09-06] MEDS ORDERED: GLUC1VIA20 IJ (22:33)
[2024-09-06] MEDS ORDERED: ACET-2247 PO (22:33)
[2024-09-06] MEDS ORDERED: FERS325 PO (22:33)
[2024-09-06] MEDS ORDERED: FURO20TA6 PO (22:33)
[2024-09-06] MEDS ORDERED: HYDR25TA67 PO (22:33)
[2024-09-06] MEDS ORDERED: HONE15GE TP (22:33)
[2024-09-06] MEDS ORDERED: LOPE2CAP PO (22:33)
--- NOTE | 2024-09-06 23:05 | ERN ---
General Chief Complaint: Other Problems Stated Complaint: RIGHT HYDRONEPHROSIS, ASCITIS, FLUID OVERLOAD Time Seen by MD: 21:49 History of Present Illness Initial Comments Patient is a 54-year-old female with multiple medical problems. She is staying at a acute care rehabilitation facility. They sent her here because her abdomen is distended and she has a ascites. The acute care facility would like us to perform a paracentesis. Patient past medical history is complex and includes cirrhosis. Patient states that she has never had much alcohol to drink ever in her life. Please see her medical diagnoses below: Suspected partial gastric outlet obstruction VS small bowel obstruction ruled out per General surgery Acute anemia from GI Bleed, POA (STomach per NM scan) s/p x 3 unsuccessful EGD due to food in the esophagus Acute Hypoxic Respiratory failure Moderate Pulmonary Hypertension RVSP 48.9 mmHG Acute on Chronic Diastolic Heart Failure EF > 55% on 2 Echo 07/10/24, POA Pancytopenia w/ Elevated Retic count, POA Hepatomegaly Liver Cirrhosis pending MELD score 20 points 19% chance of mortality in the next 3 months. 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 Rt foot wound Acute UTI secondary to Klebsiella oxytoca, completed 10 days of meropenem IV Allergies: Coded Allergies: Penicillins (Unverified Allergy, Unknown, 09/24/21) Home Meds Reported Medications Glucagon,Human Recombinant (Glucagon,Human Recombinant Kit) 1 Mg Kit, 1 MG IJ Q4PRN for HYPOGLYCEMIA, KIT 09/06/24 Promethazine HCl (Phenergan) 25 Mg/Ml Ampul, 0.5 ML IM AD PRN for NAUSEA/VOMITING for 14 Days, #56 ML 0 Refills 09/06/24 Loperamide HCl (Loperamide) 2 Mg Capsule, 2 CAP PO Q6H for loose stool for 5 Days, #40 CAP 0 Refills 09/06/24 Acetaminophen (Tylenol) 325 Mg Tablet, 2 TAB PO Q6HPRN PRN for pain or fever for 7 Days, #60 TAB 0 Refills 09/06/24 Guaifenesin/Dextromethorphan (Guaifenesin Dm Syrup) 100 Mg-10 Mg/5 Ml Syrup, 5 ML PO Q4H for cough and congestion for 4 Days, #120 ML 0 Refills 09/06/24 Cyanocobalamin (Vitamin B-12) (B-12) 1,000 Mcg Tablet, 1 TAB PO DAILY for 30 Days, #30 TAB 0 Refills 09/06/24 Folic Acid (Folic Acid) 0.4 Mg Tablet, 1 TAB PO DAILY for 30 Days, #30 TAB 0 Refills 09/06/24 Furosemide (Lasix 20Mg Tab) 20 Mg Tablet, 1 TAB PO DAILY for 30 Days, #30 TAB 0 Refills 09/06/24 Folic Acid/Vit B Complex and C (Nephro Vitamins Tablet) 0.8 Mg Tablet, 0.8 MG PO DAILY, TAB 09/06/24 Lactobacillus Acidophilus (Probiotic) 10 Billion Cell Capsule, 1 CAP PO DAILY for 10 Days, #30 CAP 0 Refills 09/06/24 Ferrous Sulfate (Ferrous Sulfate) 325 Mg (65 Mg Iron) Ectab, 1 TAB PO BID for 30 Days, #60 TAB 0 Refills 09/06/24 Hydralazine HCl (Hydralazine HCl) 25 Mg Tablet, 1 TAB PO BID for 30 Days, #60 TAB 0 Refills 09/06/24 Metoprolol Tartrate (Metoprolol Tartrate) 25 Mg Tablet, 1 TAB PO BID for 30 Days, #60 TAB 0 Refills 09/06/24 Tramadol Hcl (Tramadol HCl) 50 Mg Tablet, 50 MG PO AD, TAB 09/06/24 Ondansetron HCl (Ondansetron HCl) 4 Mg Tablet, 1 TAB PO Q6HPRN PRN for nausea/vomiting, #10 TAB 0 Refills 09/06/24 Honey (Medihoney) 80 % Gel..ml., 15 ML TP DAILY 09/06/24 Nystatin (Nystatin) 100,000 Unit/Gram Powder, 1 APPL TP BID for 7 Days, #60 GM 0 Refills apply to affected area(s) 09/06/24 Past Medical History Past Medical History: CAD, Diabetes-Type II, High Cholesterol, Hypertension Medical History Other: Cirrhosis Past Surgical History: Appendectomy, Hysterectomy, Surgical History Other: LEFT BLK AMPUTATION, abdominal hernia repair ROS Dictation Patient states that she has no other complaints beyond needing to have her abdomen drained of fluid. She states no fevers no chills no change in urination no change in bowel habits no cough no fever no upper respiratory tract infe ctions no abdominal pain. Physical Exam General Appearance: (+) no apparent distress Orientation: (+) alert Head/Face Trauma: No Eye: bilateral eye normal inspection, bilateral eye PERRL, bilateral eye EOMI Ear, Nose, Throat: (+) hearing grossly normal, (+) normal ENT inspection Neck: (+) normal inspection, (+) supple, (+) full range of motion Respiratory: (+) chest non-tender, (+) lungs clear, (+) well ventilated Heart: (+) regular, (+) no gallop Vascular: (+) edema Vascular Comment Patient's peripheral pulses are extremely be weak. She has a lot of edema in her right lower extremity. Unable to palpate a pulse. Gastrointestinal: (+) soft, (+) distended Gastrointestinal Comment Patient has a massive abdomen mostly filled with fluid. Unable to auscultate bowel sounds. Abdomen mildly tender. 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 Results Laboratory and Microbiology Lab and Micro Result Laboratory Tests Test 09/06/24 22:29 White Blood Count 2.3 K/uL (4.8-10.8) L Red Blood Count 2.20 MIL/uL (4.00-5.50) L Hemoglobin 7.0 g/dL (12.0-16.0) *L Hematocrit 22.1 % (36-48) L Mean Corpuscular Volume 100.5 fL (79-99) H Mean Corpuscular Hemoglobin 31.8 pg (27.0-33.0) Mean Corpuscular Hemoglobin Concent 31.7 g/dL (32.0-36.0) L Red Cell Distribution Width 16.5 % (11.0-15.5) H Platelet Count 46 K/uL (130-400) L Mean Platelet Volume 11.3 fL (7.5-10.5) H Immature Granulocyte % (Auto) 0.9 % (0-1) Neutrophils (%) (Auto) 55.6 % (40.0-77.0) Lymphocytes (%) (Auto) 22.2 % (21.0-51.0) Monocytes (%) (Auto) 12.6 % (3.0-13.0) Eosinophils (%) (Auto) 8.3 % (0.0-8.0) H Basophils (%) (Auto) 0.4 % (0.0-5.0) Neutrophils # (Auto) 1.3 K/uL (1.8-7.7) L Lymphocytes # (Auto) 0.5 K/uL (1.0-4.8) L Monocytes # (Auto) 0.3 K/uL (0.1-1.0) Eosinophils # (Auto) 0.19 K/uL (0.00-0.70) Basophils # (Auto) 0.01 K/uL (0.00-0.20) Absolute Immature Granulocyte (auto 0.02 K/uL (0-1) Segmented Neutrophils % 62 % (40-70) Lymphocytes % (Manual) 23 % (22-44) Monocytes % (Manual) 12 % (2-9) H Eosinophils % (Manual) 1 % (1-6) Nucleated Red Blood Cells 0.0 % (0.0-0.19) Differential Comment MANUAL DIFFERENTIAL Reactive Lymphocytes 2 % (0-0) H White Cell Morphology Comment See comments Platelet Morphology Comment MARKED DECREASE Red Blood Cell Morphology See comments Prothrombin Time 11.9 SEC (9.6-11.6) H Prothromb Time International Ratio 1.14 (0.85-1.15) Sodium Level 134 mmol/L (136-145) L Potassium Level 3.9 mmol/L (3.5-5.1) Chloride Level 104 mmol/L (101-111) Carbon Dioxide Level 22 mmol/L (21-32) Blood Urea Nitrogen 45 mg/dL (7-18) H Creatinine 2.4 mg/dL (0.5-1.0) H Glomerular Filtration Rate Calc 23 mL/min (>90) Random Glucose 106 mg/dL (70-105) H Total Calcium 7.6 mg/dL (8.5-10.1) L Total Bilirubin 1.4 mg/dL (0.2-1.0) H Aspartate Amino Transf (AST/SGOT) 18 U/L (10-37) Alanine Aminotransferase (ALT/SGPT) < 6 U/L (12-78) L Alkaline Phosphatase 82 U/L (50-136) B-Type Natriuretic Peptide 714 pg/mL (0-100) H Total Protein 6.8 g/dL (6.0-8.3) Albumin 1.7 g/dL (3.5-5.0) L MDM Patient has multiple medical problems relating to cirrhosis. She has been sent here for paracentesis I will order a right upper quadrant ultrasound to find a best spot for drainage. I will also repeat LFTs renal and coags to establish patient's MELD score. Patient's PT/INR is normal. Chemistry panel is consistent with a prior chemistry panels regarding her chronic renal failure. CBC is normal except for a hemoglobin of 7 apparently patient's hemoglobin was 5.5 and she [facility] and she has responded appropriately. I do not know what is causing her anemia I will do a iron panel . With the help of the prison keeper we marked despite that would be useful for doing a paracentesis. Were in the process of consenting and setting up the equipment for the paracentesis. Paracentesis removed 7 L of bland fluid. I did not send it off for analysis. ED Course Orders Procedure Category Date Status Time Cbc With Differential LAB 09/06/24 Complete 22:49 Comprehensive LAB 09/06/24 Complete Metabolic Panel 22:49 B-Type Natriuretic LAB 09/06/24 Complete Peptide 22:49 Chest 1vw RAD 09/06/24 Taken 22:49 Us Abdominal Ruq\Ltd US 09/06/24 Taken 22:49 Prothrombin Time With LAB 09/06/24 Complete INR 23:06 Manual Differential LAB 09/06/24 Complete 22:29 Type And Screen BBK 09/07/24 In Process 01:11 Vital Signs Date Time Temp Pulse Resp B/P (MAP) Pulse Ox O2 Delivery O2 Flow Rate FiO2 09/07/24 00:30 98.1 71 18 119/67 98 Room Air* 0 21 09/06/24 23:30 98.1 78 18 116/72 98 Room Air* 0 21 09/06/24 22:13 78 18 116/74 98 Room Air* 0 21 09/06/24 21:46 98.1 78 16 128/76 98 Room Air 0 DX & DISP Disposition: Discharge Departure Impression: Primary Impression: Tense ascites Additional Impressions: Pancytopenia, Anemia requiring transfusions, Renal insufficiency, Volume overload Condition: Stable Additional Instructions: 7 L of ascitic fluid removed. Patient's hemoglobin is 7. She will go back to her rehabilitation facility for further blood transfusions. I recommend getting some IV iron. I also recommend treating the patient's Nix new recommendation is to her is a padded or Mounjaro. Referrals: CJ PONCE (PCP) HAKEEM DIXON MD September 06, 2024 23:05
[2024-09-06 23:47] LABS: BASOPHILS # (AUTO) 0.01 K/uL (0.00-0.20); BASOPHILS % (AUTO) 0.4 % (0.0-5.0); EOSINOPHILS # (AUTO) 0.19 K/uL (0.00-0.70); EOSINOPHILS % (AUTO) 8.3 % (0.0-8.0); HEMATOCRIT 22.1 % (36-48); IMMATURE GRANULOCYTE ABSOLUTE 0.02 K/uL (0-1); LYMPHOCYTES # (AUTO) 0.5 K/uL (1.0-4.8); LYMPHOCYTES % (AUTO) 22.2 % (21.0-51.0); MEAN CORPUSCULAR HEMOGLOBIN 31.8 pg (27.0-33.0); MEAN CORPUSCULAR HGB CONC 31.7 g/dL (32.0-36.0); MEAN CORPUSCULAR VOLUME 100.5 fL (79-99); MONOCYTES # (AUTO) 0.3 K/uL (0.1-1.0); MONOCYTES % (AUTO) 12.6 % (3.0-13.0); NEUTROPHILS # (AUTO) 1.3 K/uL (1.8-7.7); NEUTROPHILS % (AUTO) 55.6 % (40.0-77.0); PLATELET COUNT (AUTO) 46 K/uL (130-400); RED CELL DISTRIBUTION WIDTH 16.5 % (11.0-15.5); WHITE BLOOD COUNT (AUTO) 2.3 K/uL (4.8-10.8)
[2024-09-06 23:58] LABS: CARBON DIOXIDE 22 mmol/L (21-32); CHLORIDE 104 mmol/L (101-111); CREATININE 2.4 mg/dL (0.5-1.0); GLOMERULAR FILTR. RATE CALC 23 mL/min (>90); GLUCOSE,RANDOM 106 mg/dL (70-105); POTASSIUM 3.9 mmol/L (3.5-5.1); SODIUM SERUM 134 mmol/L (136-145); UREA NITROGEN, BLOOD 45 mg/dL (7-18)
[2024-09-07] LABS: INR 1.14 (0.85-1.15); PROTHROMBIN TIME 11.9 SEC (9.6-11.6)
[2024-09-07 00:03] LABS: ALANINE AMINOTRANSFERASE < 6 U/L (12-78); ALBUMIN 1.7 g/dL (3.5-5.0); ASPARTATE AMINOTRANSFERASE 18 U/L (10-37); BILIRUBIN,TOTAL 1.4 mg/dL (0.2-1.0); TOTAL PROTEIN, SERUM 6.8 g/dL (6.0-8.3)
[2024-09-07 00:19] LABS: B-TYPE NATRIURETIC PEPTIDE 714 pg/mL (0-100)
[2024-09-07 00:30] VITALS: BP 119/67; PULSE 71; RESP 18; TEMP 98.1; O2SAT 98
[2024-09-07 00:44] LABS: EOSINOPHILS % (MANUAL) 1 % (1-6); LYMPHOCYTES % (MANUAL) 23 % (22-44); MAN.DIFF COMMENT-IMPRESSION MANUAL DIFFERENTIAL; MONOCYTES % (MANUAL) 12 % (2-9); REACTIVE LYMPHOCYTES 2 % (0-0); SEGMENTED NEUTROPHILS % 62 % (40-70); TOTAL CELLS COUNTED 100
[2024-09-07 00:45] LABS: PLATELET MORPHOLOGY COMMENT MARKED DECREASE
--- NOTE | 2024-09-07 02:02 | NUR ---
PARACENTESIS DONE BY DR BATISTA REMOVED 6L OF ABDOMINAL FLUID (YELLOWISH, CLEAR) SECURED CONSENT
[2024-09-07 02:22] LABS: RETICULOCYTE % (AUTO) 2.72 % (0.42-2.23)
[2024-09-07] MEDS: IRON sUCROse COMPLEX 100 MG/5 ML VIAL IV ONE (02:39)
--- NOTE | 2024-09-07 02:58 | NUR ---
TRANSPORT BOOKED, NOTIFIED EMS VIA PHONE CALL. TRANSPORT FORM SENT CALLED [facility], GIVEN THEM A HEADS UP THAT PT IS GOING TO BE DISCHARGED, CONFIRMED BY STAFF ALEXANDRA
--- NOTE | 2024-09-07 05:49 | NUR ---
PATIENT STILL WAITING EMS FOR TRANSPORT BACK TO [facility]. EMS DISPATCH CALLED FOR ETA, 15-30 ESTIMATED WAIT
--- NOTE | 2024-09-07 12:02 | HMCIMG ---
CHEST 1VW HISTORY: Ascites COMPARISON: 07/14/2024 FINDINGS: A frontal projection of the chest was obtained. Prominent interstitial markings are seen with possible superimposed infiltrates. The heart is borderline enlarged. Poor inspiratory effort is seen. No evidence of aortic calcification is seen. IMPRESSION: 1. Prominent interstitial markings are seen with possible superimposed infiltrates.
--- NOTE | 2024-09-07 15:24 | NUR ---
MARTIN LENZ CALLED FROM [place] AND ASKED WHAT PROCEDURE WAS DONE TO PT. I INFORMED HIM THAT A PARACENTESIS WAS DONE AND 7 LITERS REMOVED PRIOR TO D/C BACK TO THEM.
--- NOTE | 2024-09-07 16:42 | HMCIMG ---
US ABDOMINAL RUQ\E\LTD HISTORY: Ascites COMPARISON: None TECHNIQUE: Right upper quadrant abdominal ultrasound study was performed. FINDINGS: Liver measures 15.7 cm. Pancreas is not well seen due to overlying bowel gas. Liver is echogenic consistent with liver parenchymal disease. Possible gallstone is seen in the gallbladder neck region. Common duct measures 4 mm. Gallbladder wall is thickened measuring 5 mm. Right kidney measures 12.5 x 5.6 x 5 cm. There is mil right hydronephrosis or hydroureter. IMPRESSION: 1. Gallstone in the gallbladder. Gallbladder wall thickening. No ductal dilatation is seen. 2. Right hydronephrosis is seen.
== END 2024-09-07 06:30 ==
LOC: EDH 21:43
DX: R18.8 Other ascites (principal); D64.9 Anemia, unspecified; D61.818 Other pancytopenia; I12.9 Hypertensive chronic kidney disease with stage 1 through stage 4 chronic kidney disease, or unspecified chronic kidney disease; E11.22 Type 2 diabetes mellitus with diabetic chronic kidney disease; I25.10 Atherosclerotic heart disease of native coronary artery without angina pectoris; N18.9 Chronic kidney disease, unspecified; E87.70 Fluid overload, unspecified; E11.65 Type 2 diabetes mellitus with hyperglycemia; E78.00 Pure hypercholesterolemia, unspecified; Z79.899 Other long term (current) drug therapy; Z88.0 Allergy status to penicillin; Z89.612 Acquired absence of left leg above knee; Z90.49 Acquired absence of other specified parts of digestive tract; Z90.710 Acquired absence of both cervix and uterus
CPT/HCPCS: 99285; 76705; 71045; 83540; 83550; 80053; 83880; 85025; 85610; 85045; 86850; 86900; 86901; 36415 ×2; 96365; J1756

== ENCOUNTER 2024-11-13 08:08 | Observation (INO) | payer MEDICARE ==
[~2024-11-13] VITALS: Ht 167.6 cm; Wt 104.8 kg
[~2024-11-13 08:08] MED LIST changes: -CLIN-141 PO; +CYAN-37 PO; +FERS325 PO; +FOLI0.4T6 PO; +FOLI0.8T53 PO; -FURO-152 PO; +FURO20TA6 PO; +HYDR25TA67 PO; +LOPE2CAP PO; +METO25TA6 PO; -POTA10CA45 PO; -TAMS-1 PO
--- NOTE | 2024-11-13 08:26 | ERN ---
General Chief Complaint: Abdominal Pain Stated Complaint: ABD PAIN Time Seen by MD: 08:09 Source: patient History of Present Illness Initial Comments PATIENT IS A 54-YEAR-OLD FEMALE COMING IN COMPLAINING OF ABDOMINAL DISTENTION. PATIENT HAS A HISTORY OF LIVER CIRRHOSIS AND FREQUENTLY PRESENTS WITH A ASCITES. STATES THAT SHE HAS NOT HAD A PARACENTESIS IN THE A COUPLE OF WEEKS. NO FEVER OR CHILLS. Allergies: Coded Allergies: Penicillins (Unverified Allergy, Unknown, 09/24/21) Home Meds Reported Medications Loperamide HCl (Loperamide) 2 Mg Capsule, 2 CAP PO Q6H for loose stool for 5 Days, #40 CAP 0 Refills 09/06/24 Cyanocobalamin (Vitamin B-12) (B-12) 1,000 Mcg Tablet, 1 TAB PO DAILY for 30 Days, #30 TAB 0 Refills 09/06/24 Folic Acid (Folic Acid) 0.4 Mg Tablet, 1 TAB PO DAILY for 30 Days, #30 TAB 0 Refills 09/06/24 Furosemide (Lasix 20Mg Tab) 20 Mg Tablet, 1 TAB PO DAILY for 30 Days, #30 TAB 0 Refills 09/06/24 Folic Acid/Vit B Complex and C (Nephro Vitamins Tablet) 0.8 Mg Tablet, 0.8 MG PO DAILY, TAB 09/06/24 Ferrous Sulfate (Ferrous Sulfate) 325 Mg (65 Mg Iron) Ectab, 1 TAB PO BID for 30 Days, #60 TAB 0 Refills 09/06/24 Hydralazine HCl (Hydralazine HCl) 25 Mg Tablet, 1 TAB PO BID for 30 Days, #60 TAB 0 Refills 09/06/24 Metoprolol Tartrate (Metoprolol Tartrate) 25 Mg Tablet, 1 TAB PO BID for 30 Days, #60 TAB 0 Refills 09/06/24 Past Medical History Past Medical History: Anemia, CHF, High Cholesterol, Hypertension, Other Medical History Other: LIVER CIRRHOSIS Past Surgical History: Appendectomy, Hysterectomy, Surgical History Other: LEFT BLK AMPUTATION, abdominal hernia repair ROS Dictation CONSTITUTIONAL: NO CHILLS, NO FEVER, NO WEAKNESS, NO DIAPHORESIS, NO MALAISE. HEAD/FACE: NO SIGNS OF TRAUMA. EENT: NO EYE PAIN, NO BLURRED VISION, NO TEARING, NO DOUBLE VISION, NO EAR PAIN, NO EAR DISCHARGE, NO NOSE PAIN, NO NASAL CONGESTION, NO THROAT PAIN, NO THROAT SWELLING, NO MOUTH PAIN. RESPIRATORY: NO COUGH, NO ORTHOPNEA, NO SOB, NO STRIDOR, NO WHEEZING. CARDIOVASCULAR: NO CHEST PAIN, NO EDEMA, NO PALPITATIONS, NO SYNCOPE. GASTROINTESTINAL/ABDOMINAL: NO ABDOMINAL PAIN, NO CONSTIPATION, NO DIARRHEA, NO NAUSEA, NO VOMITING. GENITOURINARY: NO ABNORMAL DISCHARGE, NO DYSURIA, NO FREQUENT URINATION, NO HEMATURIA. NO COMPLAINTS OF PAIN IN THE GENITALS. MUSCULOSKELETAL: NO BACK PAIN, NO GOUT, NO JOINT PAIN, NO JOINT SWELLING, NO MUSCLE PAIN, NO MUSCLE STIFFNESS, NO NECK PAIN. INTEGUMENTARY: NO CHANGE IN COLOR, NO CHANGE IN HAIR/NAILS, NO DRYNESS, NO LESION, NO LUMPS, NO RASH. NEUROLOGICAL/PSYCH: NO ANXIETY, NOT DEPRESSED, NO EMOTIONAL PROBLEM, NO HEADACHE, NO NUMBNESS, NO PRE-EXISTING DEFICIT, NO HISTORY OF SEIZURES, NO TREMORS, NO WEAKNESS. HEMATOLOGIC/LYMPHATIC: NOT ANEMIC, NO HISTORY OF BLOOD CLOTS, NO APPARENT BLEEDING, NO BRUISING, GLANDS NOT SWOLLEN. ALL SYSTEMS NEGATIVE, EXCEPT NOTED. Physical Exam Physical Exam Dictation VITAL SIGNS: REVIEWED. GENERAL APPEARANCE: ALERT, ORIENTED X3, NO ACUTE DISTRESS, OBESE. HEAD AND FACE: NON-TRAUMATIC. EYES: PERRL, PINK CONJUNCTIVAS, EYELID NO TRAUMA, ANTERIOR CHAMBER CLEAR. EARS: PINNAS INTACT AND NO SIGNS OF TRAUMA OR ERYTHEMA. EAR CANALS CLEAR AND NO DISCHARGE. TMS NO ERYTHEMA. NOSE: NO DISCHARGE, NO BLEEDING. OROPHARYNX: MOUTH NORMAL, TEETH NO CARIES, TONGUE PINK. PHARYNX CLEAR, NO ERYTHEMA. TONSILS NO EXUDATES, NO ABSCESSES NOTED. MUCOUS MEMBRANE MOIST. NECK: SUPPLE, NON-TENDER, NO THYROMEGALY, NO MASSES, NO JVD, NO BRUITS. BREAST: DEFERRED. CHEST: NO TENDERNESS, NO CREPITUS, NO PARADOXICAL MOVEMENT, NO RETRACTIONS. LUNGS: CLEAR, WELL-VENTILATED, SYMMETRIC, NO RALES, NO WHEEZING, NO RHONCHI, NO STRIDOR, GOOD BREATH SOUNDS BILATERALLY. HEART: REGULAR RATE, REGULAR RHYTHM, NO MURMUR, NO GALLOPS. VASCULAR: NO PERIPHERAL EDEMA. ABDOMEN: SOFT, POSITIVE BOWEL SOUNDS, DISTENDED, NO GUARDING, NONTENDER, NO REBOUND, NO MASSES NO HEPATOMEGALY, NO SPLENOMEGALY, NO CHRISTIANSON'S SIGN, NO HERNIAS. RECTAL: DEFERRED. GENITAL: DEFERRED. NEUROLOGICAL: NORMAL SPEECH, GROSS MOTOR FUNCTION INTACT, GROSS SENSORY FUNCTION INTACT. MUSCULOSKELETAL: NECK NONTENDER, FULL RANGE OF MOTION, BACK NONTENDER, FULL RANGE OF MOTION. EXTREMITIES: NONTENDER, FULL RANGE OF MOTION. SKIN: COLOR PINK, DRY, NO TURGOR, NO RASH, NO LACERATIONS, NO ABRASIONS, NO CONTUSIONS. LYMPHATICS: DEFERRED. Results Laboratory and Microbiology Lab and Micro Result Laboratory Tests Test 11/13/24 08:51 White Blood Count 3.5 K/uL (4.8-10.8) L Red Blood Count 1.65 MIL/uL (4.00-5.50) L Hemoglobin 5.5 g/dL (12.0-16.0) *L Hematocrit 18.0 % (36-48) *L Mean Corpuscular Volume 109.1 fL (79-99) H Mean Corpuscular Hemoglobin 33.3 pg (27.0-33.0) H Mean Corpuscular Hemoglobin Concent 30.6 g/dL (32.0-36.0) L Red Cell Distribution Width 19.4 % (11.0-15.5) H Platelet Count 50 K/uL (130-400) L Mean Platelet Volume 10.7 fL (7.5-10.5) H Immature Granulocyte % (Auto) 1.1 % (0-1) H Neutrophils (%) (Auto) 70.6 % (40.0-77.0) Lymphocytes (%) (Auto) 18.6 % (21.0-51.0) L Monocytes (%) (Auto) 5.1 % (3.0-13.0) Eosinophils (%) (Auto) 4.0 % (0.0-8.0) Basophils (%) (Auto) 0.6 % (0.0-5.0) Neutrophils # (Auto) 2.5 K/uL (1.8-7.7) Lymphocytes # (Auto) 0.7 K/uL (1.0-4.8) L Monocytes # (Auto) 0.2 K/uL (0.1-1.0) Eosinophils # (Auto) 0.14 K/uL (0.00-0.70) Basophils # (Auto) 0.02 K/uL (0.00-0.20) Absolute Immature Granulocyte (auto 0.04 K/uL (0-1) Nucleated Red Blood Cells 0.0 % (0.0-0.19) Platelet Morphology Comment DECREASED Red Blood Cell Morphology See comments Prothrombin Time 11.7 SEC (9.6-11.6) H Prothromb Time International Ratio 1.12 (0.85-1.15) Activated Partial Thromboplast Time 30.0 SEC (26.3-35.5) Sodium Level 136 mmol/L (136-145) Potassium Level 4.4 mmol/L (3.5-5.1) Chloride Level 106 mmol/L (101-111) Carbon Dioxide Level 22 mmol/L (21-32) Blood Urea Nitrogen 47 mg/dL (7-18) H Creatinine 2.6 mg/dL (0.5-1.0) H Glomerular Filtration Rate Calc 21 mL/min (>90) Random Glucose 93 mg/dL (70-105) Total Calcium 7.8 mg/dL (8.5-10.1) L Labs Reviewed?: Yes MDM MDM: DIFFERENTIAL DIAGNOSIS: STATUS POST PARACENTESIS, ASCITES, LIVER CIRRHOSIS, anemia, end-stage renal disease RATIONALE: TESTS CONSIDERED AND ORDERED SECONDARY TO SHARED DECISION MAKING INCLUDE: PREVIOUS OUTSIDE RECORDS REVIEWED: OLD ER VISITS. RISK OF COMPLICATION AND/OR MORBIDITY OR MORTALITY OF PATIENT MANAGEMENT: NONE MEDICATIONS-PER MEDICATION RECONCILIATION NEED FOR HOSPITALIZATION: PATIENT DOES MEET CRITERIA FOR HOSPITALIZATION. NEED FOR EMERGENCY MAJOR/MINOR SURGERY: NO THERE ARE NO SOCIAL CONCERNS WITH THIS PATIENT. PRESCRIPTION DRUG MANAGEMENT PRESCRIPTIONS WILL INCLUDE SYMPTOMATIC CARE PATIENT'S PRIOR EXTERNAL MEDICAL RECORDS FROM OTHER ER VISITS WERE REVIEWED BY ME INDICATED. PRIOR TESTING AND RESULTS FROM PREVIOUS VISITS WERE REVIEWED. PRIOR TESTS WERE TAKEN INTO ACCOUNT WITH MEDICAL DECISION MAKING AND RESOURCE UTILIZATION, INDEPENDENT HISTORIAN/HISTORIANS WERE USED TO OBTAIN COMPLETE MEDICAL HISTORY. I INDEPENDENTLY INTERPRETED THE TEST THAT WERE PERFORMED, RESULTS WERE REVIEWED BY ME AND CONSIDERED FINDINGS ON RADIOLOGY IF ORDERED. MEDICAL MANAGEMENT AND EXAMINATION INTERPRETATION DISCUSSIONS WERE HAD BY ME WITH OTHER QUALIFIED HEALTHCARE PROFESSIONALS INDICATED FOR THE PATIENT'S CARE. Patient will be admitted under the care of hospitalist group for ongoing management ED Course Orders Procedure Category Date Status Time Cbc With Differential LAB 11/13/24 Complete 08:14 Basic Metabolic Panel LAB 11/13/24 Complete 08:14 Us Abdominal US 11/13/24 Logged Paracentesis Ir 08:26 Pt And Ptt LAB 11/13/24 Complete 08:27 Type And Screen BBK 11/13/24 In Process 09:28 Occult Blood Stool LAB 11/13/24 Logged Single Only 09:28 Rbc-Active Bleeding BBK 11/13/24 In Process 10:40 Vital Signs Date Time Temp Pulse Resp B/P (MAP) Pulse Ox O2 Delivery O2 Flow Rate FiO2 11/13/24 08:08 98.2 74 16 162/78 98 Room Air 0 DX & DISP Disposition: Inpatient Decision to Admit Time: 11:06 Departure Impression: Primary Impression: Anemia requiring transfusions Additional Impressions: Volume overload, Renal insufficiency, Status post abdominal paracentesis Condition: Stable Referrals: CJ PONCE (PCP) RODY JASMINE MD Nov 13, 2024 08:26
[2024-11-13 08:55] LABS: IMMATURE GRANULOCYTE ABSOLUTE 0.04 K/uL (0-1); NUCLEATED RED BLOOD CELLS 0.0 % (0.0-0.19); PLATELET COUNT (AUTO) 50 K/uL (130-400); RED BLOOD CELL COUNT(AUTO) 1.65 MIL/uL (4.00-5.50); RED CELL DISTRIBUTION WIDTH 19.4 % (11.0-15.5); WHITE BLOOD COUNT (AUTO) 3.5 K/uL (4.8-10.8)
[2024-11-13 09:03] LABS: CREATININE 2.6 mg/dL (0.5-1.0); GLOMERULAR FILTR. RATE CALC 21.0 mL/min (>90); GLUCOSE,RANDOM 93.0 mg/dL (70-105); SODIUM SERUM 136.0 mmol/L (136-145); UREA NITROGEN, BLOOD 47.0 mg/dL (7-18)
[2024-11-13 09:06] LABS: INR 1.12 (0.85-1.15)
[2024-11-13 09:28] LABS: PLATELET MORPHOLOGY COMMENT DECREASED
--- NOTE | 2024-11-13 11:00 | NUR ---
REPORT GIVEN TO ADELE LENZ
--- NOTE | 2024-11-13 11:17 | HP ---
[facility] HISTORY AND PHYSICAL Date of Service: Nov 13, 2024 Time of Service: 11:06 HISTORY OF PRESENT ILLNESS: [ ] admission date: 11/13/24 PCP: Kalee KHAN 54-year-old female with past medical history of type 2 diabetes, CAD, hypertension, hyperlipidemia, history of left AKA, and obesity, who presented to [facility] ED chief complaints: abd distention with Ascites. she has underlying history of liver cirrhosis : last paracentesis was on September/2024. She is requesting paracentitis: labs revealed with a low hemoglobin 5.5 hematocrit 17.4. She reports no active bleeding, chronic anemia with frequent blood transfusion in the past. Seen in ED 9; Patient is seen she is fully awake alert oriented x3. Going for Paracentitis now. REVIEW OF SYSTEMS a 12 point ROS was obtained all relevant positive documented otherwise ROS negative PAST MEDICAL HISTORY: refer to HPI PAST SURGICAL HISTORY: ]Appendectomy Hysterectomy Left BKA paracentitis monthly PAST SOCIAL HISTORY: [ ] ]No tobacco no alcohol no substance abuse FAMILY HISTORY: [ ]Noncontributory Coded Allergies: Penicillins (Unverified Allergy, Unknown, 09/24/21) PHYSICAL EXAM GENERAL APPEARANCE: The patient is awake, alert, and oriented, in no acute cardiopulmonary distress. NEUROLOGICAL: Cranial nerves II-XII grossly intact. Motor is 5/5 in bilateral upper and lower extremities proximal to distal. No sensory deficits. HEENT: Face is symmetric. Pupils are equal and reactive. Extraocular movements are intact. NECK: Supple. No JVD. No thyromegaly. No submental, submandibular, pre- /postauricular, occipital or supraclavicular lymphadenopathy. CHEST: Normal chest expansion. No Telemetry. LUNGS: Absence of any rales, rhonchi or any wheezing. CARDIOVASCULAR: Regular. S1 and S2 normal. No appreciable rubs, murmurs or gallops. ABDOMEN: Soft, nontender, ++ distended. There is no rebound, voluntary guarding, or rigidity. : Deferred. No Amezquita. EXTREMITIES: Non-edematous and not cyanotic. No clubbing. Good capillary refill. SKIN: No skin breakdown. Vital Sign (Last 24 Hours) 11/13/24 08:08 Temp 98.2 Pulse 74 Resp 16 B/P (MAP) 162/78 Pulse Ox 98 O2 Delivery Room Air O2 Flow Rate 0 LABS: Laboratory: Test 11/13/24 08:51 Range/Units White Blood Count 3.5 L 4.8-10.8 K/uL Red Blood Count 1.65 L 4.00-5.50 MIL/uL Hemoglobin 5.5 *L 12.0-16.0 g/dL Hematocrit 18.0 *L 36-48 % Mean Corpuscular Volume 109.1 H 79-99 fL Mean Corpuscular Hemoglobin 33.3 H 27.0-33.0 pg Mean Corpuscular Hemoglobin Concent 30.6 L 32.0-36.0 g/dL Red Cell Distribution Width 19.4 H 11.0-15.5 % Platelet Count 50 L 130-400 K/uL Mean Platelet Volume 10.7 H 7.5-10.5 fL Immature Granulocyte % (Auto) 1.1 H 0-1 % Neutrophils (%) (Auto) 70.6 40.0-77.0 % Lymphocytes (%) (Auto) 18.6 L 21.0-51.0 % Monocytes (%) (Auto) 5.1 3.0-13.0 % Eosinophils (%) (Auto) 4.0 0.0-8.0 % Basophils (%) (Auto) 0.6 0.0-5.0 % Neutrophils # (Auto) 2.5 1.8-7.7 K/uL Lymphocytes # (Auto) 0.7 L 1.0-4.8 K/uL Monocytes # (Auto) 0.2 0.1-1.0 K/uL Eosinophils # (Auto) 0.14 0.00-0.70 K/uL Basophils # (Auto) 0.02 0.00-0.20 K/uL Absolute Immature Granulocyte (auto 0.04 0-1 K/uL Nucleated Red Blood Cells 0.0 0.0-0.19 % Platelet Morphology Comment DECREASED Red Blood Cell Morphology See comments Prothrombin Time 11.7 H 9.6-11.6 SEC Prothromb Time International Ratio 1.12 0.85-1.15 Activated Partial Thromboplast Time 30.0 26.3-35.5 SEC Sodium Level 136 136-145 mmol/L Potassium Level 4.4 3.5-5.1 mmol/L Chloride Level 106 101-111 mmol/L Carbon Dioxide Level 22 21-32 mmol/L Blood Urea Nitrogen 47 H 7-18 mg/dL Creatinine 2.6 H 0.5-1.0 mg/dL Glomerular Filtration Rate Calc 21 >90 mL/min Random Glucose 93 70-105 mg/dL Total Calcium 7.8 L 8.5-10.1 mg/dL DIAGNOSTICS / RADIOLOGY: [ ] ASSESSMENT: Pancytopenia POA Profound anemia requiring blood transfusion POA ascites secondary to liver cirrhosis requiring paracentesis POA Liver cirrhosis Meld score: adult obesity Class II POA 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 Occult blood x1 Labs cbc, cmp, mag+ Replace electrolytes as needed as per protocol to keep potassium above 4.0 magnesium 2.0. Home medications pending to be reviewed by RN nurse. PRN: MEDICATIONS Tylenol 650 mg po every 4 hrs for fever zofran 4 mg IV every 6 hrs for n/v Hydralazine 5 mg IV every 4 hrs systolic pressure > 160 bowel regiment: lactulose 20 gm PO BID PRN constipation Pain management: Supportive measures: DVT ppx, GI ppx all questions answered time spent: > 35 min Supervising MD: Dr. Cody Brady c/d This document was generated in part using voice recognition software, occasional wrong word or sound alike substitutions may have occurred due to the inherent limitations of voice recognition software. Read the chart carefully and recognize using context, where the substitutions have occurred. Although every effort was made to edit the content, extractor and wringer operator and typing errors may occur [ ADVANCED CARE PLANNING 1. Which of the following were discussed? Hospice Care - Yes / No Therapeutic options - Yes / No Advance Directives - Yes / No Other discussions - 2. Discussed with who? 3. Voluntary nature of this service was explained to the patient? Yes / No 4. Amount of time spent - 5. Reviewed by Physician? (if this service was performed by NPP) Yes / No ATTESTATION BY PHYSICIAN I have seen and examined the patient. I reviewed the documentation, medical decision making, and treatment plan as noted by the mid-level provider above. I agree with the findings and plan of care. KOFI HAMM MD, ELIZABETH NP Nov 13, 2024 11:17
[2024-11-13] MEDS ORDERED: PoTASSium chl 10% ELIXIR 20MEQ 20 MEQ/15 ML UDCUP PO PRN (12:00)
[2024-11-13] MEDS ORDERED: MAGNESIUM 2GM PREMIX 50ML 50 ML IV PRN (12:00)
[2024-11-13] MEDS ORDERED: PoTASSium chloRIDE 20MEQ ER 20 MEQ ERTAB PO PRN (12:00)
[2024-11-13] MEDS ORDERED: LACTULOSE 20 GM/30 ML UDCUP PO PRN (12:00)
--- NOTE | 2024-11-13 12:00 | NUR ---
U/S GD PARACENTESIS PROCEDURE PERFORMED BY DR Karel AVILA. PUNCTURE SITE LLQ AND PATIENT TOLERATED PROCEDURE WELL. TOTAL REMOVED 13.5 LITERS OF CLOUDY YELLOW FLUID. END OF PROCEDURE AT 1140. CATHETER REMOVED AND DRESSING APPLIED. NO BLEEDING NOTED. REPORT GIVEN TO DELFIN GALLO AND PATIENT TRANSPORTED TO ED-9 VIA STRETCHER AT 1200. AAO X3 WITH NO C/O PAIN. SPECIMEN SENT TO LAB.
[2024-11-13 12:09] LABS: % IRON SATURATION 400.0 % (22-44); IRON, SERUM 684.0 mcg/dL (50-170)
[2024-11-13] MEDS: ALBUMIN HUMAN 25% 200 ML IV ONE (12:26)
[2024-11-13 13:00] VITALS: BP 140/65; PULSE 70; RESP 17; TEMP 97.8
--- NOTE | 2024-11-13 13:07 | NUR ---
GAVE REPORT TO NURSE BETYT.
--- NOTE | 2024-11-13 13:14 | NUR ---
PATIENT TRANSPORTED TO ROOM 313. PATIENT HAS ALL BELONGINGS AT BEDSIDE.
[2024-11-13 13:20] VITALS: BP 128/63; PULSE 77; RESP 19; TEMP 98
--- NOTE | 2024-11-13 13:20 | NUR ---
arrived from ER alert and oriented x4, vitals stable, room air, family at bedside, fall precautions in place
[2024-11-13 13:45] LABS: BODY FLUID RBC 54 /cu. mm.; BODY FLUID WBC 248 /cu. mm.
[2024-11-13 14:37] LABS: BF LYMPHOCYTE 64 %; BF MESOTHELIAL 20 %; BF MONOCYTE 4 %; BF NEUTROPHIL 12.0 %; BF TOTAL CELLS COUNTED 100
[2024-11-13 14:38] LABS: APPEARANCE BODY FLUID CLEAR (CLEAR); COLOR,BODY FLUID YELLOW (LT YELLOW); SPECIMENTYPE,BODY FLUID ASPIRATE; TOTAL VOLUME,BODY FLUID 1350 mL
[2024-11-13 16:00] VITALS: BP 138/74; PULSE 68; RESP 19; TEMP 97.8
--- NOTE | 2024-11-13 16:17 | NUR ---
SW attempted to meet with pt for IA however she stated that she was "busy on a call and come back later"
--- NOTE | 2024-11-13 17:17 | CONS ---
GASTROENTEROLOGY CONSULTATION NOTE Date of Consultation: Nov 13, 2024 Time of Consultation: 17:15 History of Present Illness: [This is a 54 yo female patient with past medical history of HTN, cirrhosis of the liver Type 2 DM, CAD,, and anemia who presented to ER with complains of abdominal distention. Patient had paracentesis done this morning. ON admission patient's HGB 5.5, WBC 3.5, Platelets 50. CMP significant for BUN 47, Creatinine of 2.5. Total bilirubin of 0.8, direct bilirubin 0.4 and albumin of 1.9. She has received 1 unit of PRBC and had second unit transfusion during vist. On exam patient is awake and alert sitting in high fowlers. Respirations unlabored. O2 at 3 L/min via NC. Informed of +FOBT and recommendations for EGD d/t anemia and possible UGIB. Patient declined EGD and stated she has been anemic all her life and has had numerous blood transfusions and will not undergo any exam. Emphasized recommendations to further examine for possible GI bleed given her history of cirrhosis and risks for EV and gastric ulcers. Patient de clined EGD. ] Review of Systems: CONSTITUTIONAL: No malaise or change in sensation of wellbeing. ENMT: No rhinorrhea, otorrhea, sinus pain, ear ache. CARDIOVASCULAR: No angina, palpitations, orthopnea or paroxysmal dyspnea. RESPIRATORY: No SOB. GASTROINTESTINAL: No abdominal pain, nausea, vomiting, diarrhea, hematemesis, melena or change in the patient's habitual bowel movements consistency/number. GENITOURINARY: No dysuria, hematuria or change in bladder continence. MUSCULOSKELETAL: No new muscle pain or decrease in muscular strength. No new joint swelling, redness or tenderness. SKIN: No new rash. Past Medical History: [ ] Past Surgical History: [ ] Past Social History: [ ] Family History: [ ] Coded Allergies: Penicillins (Unverified Allergy, Unknown, 09/24/21) Physical Exam: GEN: Awake, alert, oriented in person, time and place, and in no acute distress. HEENT: No rhinorrhea. Oral pharyngeal mucosa is pink, O2 at 2L/nc. CHEST: Respirations are unlabored but assistance with O2 is present. CARDIAC ABD: Soft, No EXT: No cyanosis or clubbing. No edema. SKIN: Intact. No rashes. JOINTS: No evidence of synovitis or acute arthritis. NEURO: Alert and oriented to name, place and person. Normal speech. Vital Sign (Last 24 Hours) 11/13/24 11/13/24 11:06 16:00 Temp 97.9 Pulse 68 Resp 19 B/P (MAP) 138/74 Pulse Ox 100 O2 Delivery Room Air O2 Flow Rate 0 FiO2 21 Laboratory: [ ] Laboratory: Test 11/13/24 11:00 11/13/24 08:51 11/13/24 08:24 Range/Units Body Fluid Source ASPIRATE Body Fluid Volume 1350 mL Body Fluid Color YELLOW LT YELLOW Body Fluid Supernatant Appearance CLEAR CLEAR Body Fluid WBC 248 /cu. mm. Body Fluid RBC 54 /cu. mm. Body Fluid Neutrophils 12.0 % Body Fluid Lymphocytes 64 % Body Fluid Monocytes % 4 % Body Fluid Mesothelial Cells (%) 20 % White Blood Count 3.5 L 4.8-10.8 K/uL Red Blood Count 1.65 L 4.00-5.50 MIL/uL Hemoglobin 5.5 *L 12.0-16.0 g/dL Hematocrit 18.0 *L 36-48 % Mean Corpuscular Volume 109.1 H 79-99 fL Mean Corpuscular Hemoglobin 33.3 H 27.0-33.0 pg Mean Corpuscular Hemoglobin Concent 30.6 L 32.0-36.0 g/dL Red Cell Distribution Width 19.4 H 11.0-15.5 % Platelet Count 50 L 130-400 K/uL Mean Platelet Volume 10.7 H 7.5-10.5 fL Immature Granulocyte % (Auto) 1.1 H 0-1 % Neutrophils (%) (Auto) 70.6 40.0-77.0 % Lymphocytes (%) (Auto) 18.6 L 21.0-51.0 % Monocytes (%) (Auto) 5.1 3.0-13.0 % Eosinophils (%) (Auto) 4.0 0.0-8.0 % Basophils (%) (Auto) 0.6 0.0-5.0 % Neutrophils # (Auto) 2.5 1.8-7.7 K/uL Lymphocytes # (Auto) 0.7 L 1.0-4.8 K/uL Monocytes # (Auto) 0.2 0.1-1.0 K/uL Eosinophils # (Auto) 0.14 0.00-0.70 K/uL Basophils # (Auto) 0.02 0.00-0.20 K/uL Absolute Immature Granulocyte (auto 0.04 0-1 K/uL Nucleated Red Blood Cells 0.0 0.0-0.19 % Platelet Morphology Comment DECREASED Red Blood Cell Morphology See comments Prothrombin Time 11.7 H 9.6-11.6 SEC Prothromb Time International Ratio 1.12 0.85-1.15 Activated Partial Thromboplast Time 30.0 26.3-35.5 SEC Sodium Level 136 136-145 mmol/L Potassium Level 4.4 3.5-5.1 mmol/L Chloride Level 106 101-111 mmol/L Carbon Dioxide Level 22 21-32 mmol/L Blood Urea Nitrogen 47 H 7-18 mg/dL Creatinine 2.6 H 0.5-1.0 mg/dL Glomerular Filtration Rate Calc 21 >90 mL/min Random Glucose 93 70-105 mg/dL Total Calcium 7.8 L 8.5-10.1 mg/dL Total Bilirubin 0.8 0.2-1.0 mg/dL Direct Bilirubin 0.4 H 0.0-0.3 mg/dL Albumin 1.9 L 3.5-5.0 g/dL Iron Level 684 #H 50-170 mcg/dL Total Iron Binding Capacity 171 L 250-450 mcg/dL Percent Iron Saturation 400.0 H 22-44 % Current Medications Medications (Trade) Dose Ordered Sig/Quan Route PRN Reason Start Time Stop Time Status Last Admin Dose Admin Acetaminophen (TYLenol 325MG TAB) 325 mg ONCE PRN PO pain 11/13/24 12:00 11/13/24 11:43 DC Hydralazine HCl (APRESOLine 20MG INJ) 5 mg Q4H PRN IV ADMINISTER FOR SBP > 160 11/13/24 12:00 12/13/24 11:59 Hydralazine HCl (APRESOLine 20MG INJ) 10 mg Q4H PRN IV ADMINISTER FOR SBP > 160 11/13/24 12:00 11/13/24 11:56 DC Insulin Human Regular (humuLIN R 100 UNIT/ML 3ML) INSULIN SLIDING SCAL... ACHS SQ 11/13/24 16:30 12/13/24 16:29 Lactulose (Constulose 20gm/ 30ml Udcup) 20 gm BID PRN PO CONSTIPATION 11/13/24 12:00 12/13/24 11:59 Magnesium Sulfate 50 ml @ 0 mls/hr PROTOCOL PRN IV low mag level 11/13/24 12:00 12/13/24 11:59 Ondansetron HCl (zoFRAN 4MG INJ) 4 mg Q6H PRN IVP NAUSEA/VOMITING 11/13/24 12:00 12/13/24 11:59 Pantoprazole Sodium (PROTonix 40MG INJ) 40 mg BID IVP 11/13/24 12:00 12/13/24 11:59 11/13/24 12:52 40 MG Potassium Chloride 100 ml @ 100 mls/hr AD PRN IV POTASSIUM PROTOCOL 11/13/24 12:00 12/13/24 11:59 Potassium Chloride (K-Dur/Klor-Con 20meq) 20 meq AD PRN PO POTASSIUM PROTOCOL 11/13/24 12:00 12/13/24 11:59 Potassium Chloride (KCl 10% Elixir 20meq/15ml) 20 meq AD PRN PO POTASSIUM PROTOCOL 11/13/24 12:00 12/13/24 11:59 Vitamin B Complex (Vitamin B-12) 1,000 mcg DAILY PO 11/14/24 09:00 12/14/24 08:59 Vitamin B Complex/ Vit C/Folic Acid (Nephrovite Tablet) 1 cap DAILY PO 11/14/24 09:00 12/14/24 08:59 Diagnostics / Radiology: [COPY/PASTE HERE IF NO REPORTS PLEASE DELETE SECTION] Assessment: Anemia [Cirrhosis of the liver Melena ] Plan: [No GI intervention at this time given patient HGB 5.5 Transfuse as needed to keep HGB >7.0 Will trend HGB, LFTs Plan for EGD when HGB improved--Poc discussed with patient. She declined any endoscopic evaluation. If concerned for ongoing GI bleed Recommend CTA Please call with questions, concerns, and change in clinical status. Thank you for this consult. ] ZAK EVANGELISTA NP Nov 13, 2024 17:17
[2024-11-13 18:00] VITALS: O2SAT 99
[2024-11-13 20:00] VITALS: BP 136/71; PULSE 72; RESP 16; TEMP 97.8
[2024-11-14] VITALS: BP 130/58; PULSE 68; RESP 20; TEMP 98
[2024-11-14 04:00] VITALS: BP 128/71; PULSE 61; RESP 16; TEMP 98.4
--- NOTE | 2024-11-14 07:50 | HMCIMG ---
US ABDOMINAL PARACENTESIS IR REASON: ASCITIES TECHNIQUE: Paracentesis was performed with ultrasound guidance. The puncture site was selected in the Right lower quadrant and overlying skin prepped and draped in a sterile fashion. 1% Xylocaine infiltration was performed. Catheter was placed in the fluid using trocar technique. 13.5 L were removed. Fluid sample was submitted for laboratory evaluation. The patient showed no evidence of complication during the procedure. Patient tolerated procedure well. IMPRESSION: 1. Ultrasound-guided paracentesis.
[2024-11-14 08:00] VITALS: BP 164/80; PULSE 65; RESP 18; TEMP 97.6; O2SAT 99
[2024-11-14] MEDS: Vitamin B Complex/Vit C/Folic Acid PO SCH (09:37)
[2024-11-14] MEDS: CYANOCOBALAMIN (VITAMIN B-12) 1,000 MCG TABLET PO SCH (09:37)
--- NOTE | 2024-11-14 09:43 | NUR ---
DCP: HOME Pt currently lives with her sister. Pt does not report any insecurities with food, alf, and/or utilities. Pt does have a wheelchair at home that she uses. Pt does not have a provider or home health at this time. PCP is Bishnu Granda and uses [facility] for any RX needs. At DC pt will want to go home and family can assist with transportation. Addendum: 11/14/24 at 0945 by LARY CANDELARIA SS Amended: Links added.
[2024-11-14 10:19] LABS: AMPHET/METH SCREEN,URINE NEGATIVE (NEGATIVE); BARBITURATE SCREEN, URINE NEGATIVE (NEGATIVE); CANNABINOID SCREEN,URINE NEGATIVE (NEGATIVE); COCAINE SCREEN,URINE NEGATIVE (NEGATIVE)
--- NOTE | 2024-11-14 11:12 | DS ---
Discharge Summary Hospital Course Summary: admission date: 11/13/24 PCP: Kalee KHAN 54-year-old female with past medical history of type 2 diabetes, CAD, hypertension, hyperlipidemia, history of left AKA, and obesity, who presented to [facility] ED chief complaints: abd distention with Ascites. she has underlying history of liver cirrhosis : last paracentesis was on September/2024. She is requesting paracentitis: labs revealed with a low hemoglobin 5.5 he matocrit 17.4. She reports no active bleeding, chronic anemia with frequent blood transfusion in the past. 11/14/2024. PATIENT RECEIVED 2 UNITS OF PACKED RBCS LATEST EIGHT 0.2 NO ACUTE BLEEDING OBSERVED. PATIENT WAS SEEN BY GI SHE REFUSED any endoscopic evaluation. PATIENT IS HEMODYNAMICALLY STABLE FOR DISCHARGE. ADVISED PATIENT TO FOLLOW-UP WITH GI SCHEDULED. ANSWER ALL QUESTIONS. Procedure(s): REASON: ASCITIES ORDERING PHYSICIAN: RODY JASMINE MD PROCEDURE: PARA ABD - US ABDOMINAL PARACENTESIS IR US ABDOMINAL PARACENTESIS IR REASON: ASCITIES TECHNIQUE: Paracentesis was performed with ultrasound guidance. The puncture site was selected in the Right lower quadrant and overlying skin prepped and draped in a sterile fashion. 1% Xylocaine infiltration was performed. Catheter was placed in the fluid using trocar technique. 13.5 L were removed. Fluid sample was submitted for laboratory evaluation. The patient showed no evidence of complication during the procedure. Patient tolerated procedure well. IMPRESSION: 1. 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 Emergency instructions: The patient was instructed to present to the nearest Emergency Department or call 911 should their symptoms return or worsen. Home Medications: Reported Medications Cyanocobalamin (Vitamin B-12) (B-12) 1,000 Mcg Tablet, 1 TAB PO DAILY for 30 Days, #30 TAB 0 Refills 09/06/24 Folic Acid (Folic Acid) 0.4 Mg Tablet, 1 TAB PO DAILY for 30 Days, #30 TAB 0 Refills 09/06/24 Ferrous Sulfate (Ferrous Sulfate) 325 Mg (65 Mg Iron) Ectab, 1 TAB PO BID for 30 Days, #60 TAB 0 Refills 09/06/24 Discontinued Reported Medications Loperamide HCl (Loperamide) 2 Mg Capsule, 2 CAP PO Q6H for loose stool for 5 Days, #40 CAP 0 Refills 09/06/24 Furosemide (Lasix 20Mg Tab) 20 Mg Tablet, 1 TAB PO DAILY for 30 Days, #30 TAB 0 Refills 09/06/24 Folic Acid/Vit B Complex and C (Nephro Vitamins Tablet) 0.8 Mg Tablet, 0.8 MG PO DAILY, TAB 09/06/24 Hydralazine HCl (Hydralazine HCl) 25 Mg Tablet, 1 TAB PO BID for 30 Days, #60 TAB 0 Refills 09/06/24 Metoprolol Tartrate (Metoprolol Tartrate) 25 Mg Tablet, 1 TAB PO BID for 30 Days, #60 TAB 0 Refills 09/06/24 Continued Medications: Cyanocobalamin (Vitamin B-12) (B-12) 1,000 Mcg Tablet 1 TAB PO DAILY for 30 Days, #30 TAB 0 Refills Ferrous Sulfate (Ferrous Sulfate) 325 Mg (65 Mg Iron) Ectab 1 TAB PO BID for 30 Days, #60 TAB 0 Refills Folic Acid (Folic Acid) 0.4 Mg Tablet 1 TAB PO DAILY for 30 Days, #30 TAB 0 Refills Time spent arranging discharge: 31-60 minutes ATTESTATION BY PHYSICIAN I have seen and examined the patient. I reviewed the documentation, medical decision making, and treatment plan as noted by the mid-level provider above. I agree with the findings and plan of care. KOFI HAMM MD, ELIZABETH NP Nov 14, 2024 11:12
[2024-11-14 11:40] VITALS: BP 155/79; PULSE 65; RESP 18; TEMP 97.8
[2024-11-14] MEDS ORDERED: PHARMACY COMMUNICATION 1 EACH EACH MISC SCH (14:30)
--- NOTE | 2024-11-14 15:54 | NUR ---
DC PLAN VISITED WITH PATIENT. SAID WANTS EMS FOR HOME NOT ABLE TO GET HOME WITH WHEEL CHAIR. WANTS FOR LATER IN THE EVENING TO HELP AT HOME. Addendum: 11/14/24 at 1557 by CALEB ALFONSO RN CM Amended: Links added.
--- NOTE | 2024-11-14 17:04 | PN ---
GASTROENTEROLOGY PROGRESS NOTE Date of Visit: Nov 14, 2024 Time of Visit: 17:03 Events / Notes: [ HGB 8.2 and holding after 2 units of PRBCs transfused. VSS. ] Review of Systems: CONSTITUTIONAL: No malaise or change in sensation of wellbeing. ENMT: No rhinorrhea, otorrhea, sinus pain, ear ache. CARDIOVASCULAR: No angina, palpitations, orthopnea or paroxysmal dyspnea. RESPIRATORY: No SOB. GASTROINTESTINAL: No abdominal pain, nausea, vomiting, diarrhea, hematemesis, melena or change in the patient's habitual bowel movements consistency/number. GENITOURINARY: No dysuria, hematuria or change in bladder continence. MUSCULOSKELETAL: No new muscle pain or decrease in muscular strength. No new joint swelling, redness or tenderness. SKIN: No new rash. Physical Exam: GEN: Awake, alert, oriented in person, time and place, and in no acute distress. HEENT: No rhinorrhea. Oral pharyngeal mucosa is pink, O2 at 2L/nc. CHEST: Respirations are unlabored but assistance with O2 is present. CARDIAC ABD: Soft, No EXT: No cyanosis or clubbing. No edema. SKIN: Intact. No rashes. JOINTS: No evidence of synovitis or acute arthritis. NEURO: Alert and oriented to name, place and person. Normal speech. Vital Signs (last 8hr) Date Time Temp Pulse Resp B/P (MAP) Pulse Ox O2 Delivery O2 Flow Rate FiO2 11/14/24 11:40 97.9 65 18 155/79 100 Room Air Laboratory: [ ] Laboratory: Test 11/14/24 09:40 11/14/24 07:14 11/14/24 02:37 11/13/24 11:00 Range/Units Urine Opiates Screen NEGATIVE NEGATIVE Urine Barbiturates Screen NEGATIVE NEGATIVE Urine Phencyclidine Screen NEGATIVE NEGATIVE Urine Amphetamines Screen NEGATIVE NEGATIVE Urine Benzodiazepines Screen NEGATIVE NEGATIVE Urine Cocaine Screen NEGATIVE NEGATIVE Urine Marijuana (THC) Screen NEGATIVE NEGATIVE Hemoglobin 8.2 #L 12.0-16.0 g/dL Hematocrit 26.0 #L 36-48 % Stool Occult Blood POSITIVE H NEGATIVE Body Fluid Source ASPIRATE Body Fluid Volume 1350 mL Body Fluid Color YELLOW LT YELLOW Body Fluid Supernatant Appearance CLEAR CLEAR Body Fluid WBC 248 /cu. mm. Body Fluid RBC 54 /cu. mm. Body Fluid Neutrophils 12.0 % Body Fluid Lymphocytes 64 % Body Fluid Monocytes % 4 % Body Fluid Mesothelial Cells (%) 20 % Test 11/13/24 08:51 11/13/24 08:24 Range/Units White Blood Count 3.5 L 4.8-10.8 K/uL Red Blood Count 1.65 L 4.00-5.50 MIL/uL Mean Corpuscular Volume 109.1 H 79-99 fL Mean Corpuscular Hemoglobin 33.3 H 27.0-33.0 pg Mean Corpuscular Hemoglobin Concent 30.6 L 32.0-36.0 g/dL Red Cell Distribution Width 19.4 H 11.0-15.5 % Platelet Count 50 L 130-400 K/uL Mean Platelet Volume 10.7 H 7.5-10.5 fL Immature Granulocyte % (Auto) 1.1 H 0-1 % Neutrophils (%) (Auto) 70.6 40.0-77.0 % Lymphocytes (%) (Auto) 18.6 L 21.0-51.0 % Monocytes (%) (Auto) 5.1 3.0-13.0 % Eosinophils (%) (Auto) 4.0 0.0-8.0 % Basophils (%) (Auto) 0.6 0.0-5.0 % Neutrophils # (Auto) 2.5 1.8-7.7 K/uL Lymphocytes # (Auto) 0.7 L 1.0-4.8 K/uL Monocytes # (Auto) 0.2 0.1-1.0 K/uL Eosinophils # (Auto) 0.14 0.00-0.70 K/uL Basophils # (Auto) 0.02 0.00-0.20 K/uL Absolute Immature Granulocyte (auto 0.04 0-1 K/uL Nucleated Red Blood Cells 0.0 0.0-0.19 % Platelet Morphology Comment DECREASED Red Blood Cell Morphology See comments Prothrombin Time 11.7 H 9.6-11.6 SEC Prothromb Time International Ratio 1.12 0.85-1.15 Activated Partial Thromboplast Time 30.0 26.3-35.5 SEC Sodium Level 136 136-145 mmol/L Potassium Level 4.4 3.5-5.1 mmol/L Chloride Level 106 101-111 mmol/L Carbon Dioxide Level 22 21-32 mmol/L Blood Urea Nitrogen 47 H 7-18 mg/dL Creatinine 2.6 H 0.5-1.0 mg/dL Glomerular Filtration Rate Calc 21 >90 mL/min Random Glucose 93 70-105 mg/dL Total Calcium 7.8 L 8.5-10.1 mg/dL Total Bilirubin 0.8 0.2-1.0 mg/dL Direct Bilirubin 0.4 H 0.0-0.3 mg/dL Albumin 1.9 L 3.5-5.0 g/dL Iron Level 684 #H 50-170 mcg/dL Total Iron Binding Capacity 171 L 250-450 mcg/dL Percent Iron Saturation 400.0 H 22-44 % Current Medications Medications (Trade) Dose Ordered Sig/Quan Route PRN Reason Start Time Stop Time Status Last Admin Dose Admin Acetaminophen (TYLenol 325MG TAB) 325 mg ONCE PRN PO pain 11/13/24 12:00 11/13/24 11:43 DC Hydralazine HCl (APRESOLine 20MG INJ) 5 mg Q4H PRN IV ADMINISTER FOR SBP > 160 11/13/24 12:00 12/13/24 11:59 Hydralazine HCl (APRESOLine 20MG INJ) 10 mg Q4H PRN IV ADMINISTER FOR SBP > 160 11/13/24 12:00 11/13/24 11:56 DC Insulin Human Regular (humuLIN R 100 UNIT/ML 3ML) INSULIN SLIDING SCAL... ACHS SQ 11/13/24 16:30 12/13/24 16:29 Lactulose (Constulose 20gm/ 30ml Udcup) 20 gm BID PRN PO CONSTIPATION 11/13/24 12:00 12/13/24 11:59 Magnesium Sulfate 50 ml @ 0 mls/hr PROTOCOL PRN IV low mag level 11/13/24 12:00 12/13/24 11:59 Octreotide Acetate 1250 mcg/ Sodium Chloride 250 ml @ 0 mls/hr PROTOCOL IV 11/14/24 03:30 12/14/24 03:29 11/14/24 04:15 5 MLS/HR Ondansetron HCl (zoFRAN 4MG INJ) 4 mg Q6H PRN IVP NAUSEA/VOMITING 11/13/24 12:00 12/13/24 11:59 Pantoprazole Sodium (PROTonix 40MG INJ) 40 mg BID IVP 11/13/24 12:00 12/13/24 11:59 11/14/24 09:37 40 MG Pharmacy Profile Note (Lace Assessment) 1 each AD MISC 11/14/24 14:30 11/14/24 14:13 DC Potassium Chloride 100 ml @ 100 mls/hr AD PRN IV POTASSIUM PROTOCOL 11/13/24 12:00 12/13/24 11:59 Potassium Chloride (K-Dur/Klor-Con 20meq) 20 meq AD PRN PO POTASSIUM PROTOCOL 11/13/24 12:00 12/13/24 11:59 Potassium Chloride (KCl 10% Elixir 20meq/15ml) 20 meq AD PRN PO POTASSIUM PROTOCOL 11/13/24 12:00 12/13/24 11:59 Vitamin B Complex (Vitamin B-12) 1,000 mcg DAILY PO 11/14/24 09:00 12/14/24 08:59 11/14/24 09:37 1,000 MCG Vitamin B Complex/ Vit C/Folic Acid (Nephrovite Tablet) 1 cap DAILY PO 11/14/24 09:00 12/14/24 08:59 11/14/24 09:37 1 CAP Diagnostics / Radiology: [COPY/PASTE HERE IF NO REPORTS PLEASE DELETE SECTION] Assessment: Anemia [Cirrhosis of the liver Melena ] Plan: [No GI intervention at this time given patient HGB 5.5 Transfuse as needed to keep HGB >7.0 Will trend HGB, LFTs Plan for EGD when HGB improved--Poc discussed with patient. She declined any endoscopic evaluation. If concerned for ongoing GI bleed Recommend CTA Please call with questions, concerns, and change in clinical status. Thank you for this consult. ] ZAK EVANGELISTA NP Nov 14, 2024 17:04
--- NOTE | 2024-11-14 17:50 | NUR ---
discharged patient given discharge paperwork, educated patient and family regarding follow ups, diet, activity, signs and symptoms to report, medications, signs and symptoms to report to ER. answered patient and family questions, both understood.
--- NOTE | 2024-11-14 21:55 | NUR ---
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
--- NOTE | 2024-11-14 21:56 | NUR ---
PATIENT REFUSED TO LEAVE BECAUSE SHE STATES SHE DOESNT FEEL WELL, AND NO DOCTORS CAME AND SPOKE TO HER TODAY, ONLY NURSE PRACTITIONER. I SPOKE TO PATIENT EXPLAINING THAT SHE ALREADY SIGNED DISCHARGE PAPERWORK AND IS ALREADY DISCHARGED FROM OUR SYSTEM. I CHECKED HER VITALS BP 150/78 HR 58 AND TEMPERATURE 97.4. NO DISTRESS NOTED, PATIENT ADVISED TO COME TO ER IF EXPERIENCING NEW SYMPTOMS. PATIENT VERBALIZED UNDERSTANDING AND LEFT WITH EMS TO HOME.
== END 2024-11-14 22:00 | disposition home or self-care (01) ==
LOC: EDH 08:08 → INTOOBSV 11:07 → EDHIP 11:07 → 3CH 13:20
PROVIDERS: ADMIT Internal Medicine; ATTEND Internal Medicine
DX: D61.818 Other pancytopenia (principal); I13.0 Hypertensive heart and chronic kidney disease with heart failure and stage 1 through stage 4 chronic kidney disease, or unspecified chronic kidney disease; E11.22 Type 2 diabetes mellitus with diabetic chronic kidney disease; N18.9 Chronic kidney disease, unspecified; N17.9 Acute kidney failure, unspecified; I50.9 Heart failure, unspecified; R18.8 Other ascites; I25.10 Atherosclerotic heart disease of native coronary artery without angina pectoris; K76.7 Hepatorenal syndrome; K74.60 Unspecified cirrhosis of liver; E66.01 Morbid (severe) obesity due to excess calories; E78.00 Pure hypercholesterolemia, unspecified; D50.9 Iron deficiency anemia, unspecified; Z90.49 Acquired absence of other specified parts of digestive tract; Z90.710 Acquired absence of both cervix and uterus; Z79.899 Other long term (current) drug therapy; Z98.890 Other specified postprocedural states; Z89.612 Acquired absence of left leg above knee
CPT/HCPCS: 36430; 96375; 96376 ×2; 99285; 82040; 83540; 83550; 82247; 82248; 80048; 85025; 89051; 85610; 85730; 86850; 86900; 86901; 86923; 87071; 87205; 36415 ×2; 49083; 96365; 96366 ×2; 80305; 85014; 85018; 82270; P9016 ×2; J2470 ×3; P9046; C1729; G0378 ×10; J2354 ×2; J7050